=== PATIENT | female | born 1950 | race Caucasian/White ===

== ENCOUNTER 2019-08-31 17:56 | Emergency (ER) | payer BC, OTHER ==
--- NOTE | 2019-08-31 18:20 | PDOC ---
Rapid Medical Evaluation Time Seen by Provider: 08/31/19 18:14 Medical Evaluation: Allergies Allergy/AdvReac Type Severity Reaction Status Date / Time minerals [From Enviro Stress] Allergy Intermediate Hives Verified 08/17/16 09:27 vitamin B complex and C Allergy Intermediate Hives Verified 08/17/16 09:27 [From Enviro Stress] vitamin E (d-alpha Allergy Intermediate Hives Verified 08/17/16 09:27 tocopherol) [From Enviro Stress] ciprofloxacin [From Cipro] Allergy Mild Rash Verified 08/14/16 13:37 Penicillins Allergy Mild Rash Verified 08/14/16 13:37 artificial sweeteners Allergy Intermediate Hives Uncoded 08/17/16 09:27 08/31/19 18:14 I have performed a brief in-person evaluation of this patient. The patient presents with a chief complaint of: 3 days of lightheadedness and headaches. H/O HTN, thyroid disease. I have ordered the following: CBC, CMP, cardiac enzymes, ekg. The patient will proceed to the ED for further evaluation. Discharge Disposition - Diagnosis Lightheadedness - Referrals - Patient Instructions - Post Discharge Activity
[2019-08-31 18:22] VITALS: BMI 27.2
[2019-08-31] MEDS ORDERED: ACETAMINOPHEN 500 MG TABLET (FP) PO ONE (19:17)
[2019-08-31] MEDS ORDERED: SODIUM CHLORIDE 1,000 ML IV STA (19:31)
--- NOTE | 2019-08-31 19:31 | PDOC ---
History of Present Illness - General Chief Complaint: Lightheaded Stated Complaint: DIZZINESS Time Seen by Provider: 08/31/19 18:14 History Source: Patient Exam Limitations: No Limitations - History of Present Illness Initial Comments: 08/31/19 19:27 68yo F with PMH of HTN, Hypothyroidism, Depression, Vertigo, Neuropathy presenting to ED with complaints of lightheadedness and headache x3d. Patient states that for the past few days she has had a tension like headache which has been intermittent. She states she usually gets headaches but this one has been lasting longer. Headache non radiating and relieved by taking ASA and by sleeping. She also endorses lightheadedness which has been constant since Tuesday. She denies weakness, numbness/tingling, changes in vision, n/v/d, chest pain, sob, back pain, neck pain, incontinence. She states that she has been having problems with her landlord which has been going on for 1y and feels like she is going to be kicked out of her household. PMD: Karyna PMH: see hpi PSH: cholecystectomy, ovarian cystectomy, R rotator cuff repair, bilateral meniscus repairs Meds: see med rec Allergies: see list Social: drinks 4-6 cans of beer occasionally Past History - Past Medical History Allergies/Adverse Reactions: Allergies Allergy/AdvReac Type Severity Reaction Status Date / Time minerals [From Enviro Stress] Allergy Intermediate Hives Verified 08/31/19 18:14 vitamin B complex and C Allergy Intermediate Hives Verified 08/31/19 18:14 [From Enviro Stress] vitamin E (d-alpha Allergy Intermediate Hives Verified 08/31/19 18:14 tocopherol) [From Enviro Stress] ciprofloxacin [From Cipro] Allergy Mild Rash Verified 08/31/19 18:14 Penicillins Allergy Mild Rash Verified 08/31/19 18:14 artificial sweeteners Allergy Intermediate Hives Uncoded 08/31/19 18:14 Home Medications: Ambulatory Orders Amlodipine Bes/Olmesartan Med [Babita 10-40 mg Tablet] 1 each PO DAILY 08/14/16 Duloxetine HCl [Cymbalta] 60 mg PO DAILY 08/14/16 Meclizine HCl [Antivert -] 25 mg PO DAILY #7 tablet 08/31/19 Thyroid,Pork [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 No: Chills, Fever, Weakness HEENTM: No: Symptoms Reported Respiratory: No: Symptoms reported Cardiac (ROS): Yes: Lightheadedness ABD/GI: No: Symptoms Reported : No: Symptoms Reported Musculoskeletal: No: Symptoms Reported Integumentary: No: Symptoms Reported Neurological: Yes: Headache, Dizziness *Physical Exam - Vital Signs Last Vital Signs Temp Pulse Resp BP Pulse Ox 98.3 F 116 H 20 145/95 97 08/31/19 18:19 08/31/19 18:19 08/31/19 18:19 08/31/19 18:19 08/31/19 18:19 - Physical Exam General Appearance: Yes: Nourished, Appropriately Dressed. No: Apparent Distress HEENT: positive: EOMI, ANNALISE, Normal ENT Inspection, Other (no nystagmus) Neck: positive: Trachea midline, Supple. negative: Carotid bruit Respiratory/Chest: positive: Lungs Clear, Normal Breath Sounds. negative: Rales , Rhonchi, Stridor, Wheezing Cardiovascular: positive: Regular Rhythm, Regular Rate, S1, S2. negative: Edema , JVD, Murmur Vascular Pulses: Dorsalis-Pedis (R): 2+, Doralis-Pedis (L): 2+ Gastrointestinal/Abdominal: positive: Normal Bowel Sounds, Soft. negative: Tender Musculoskeletal: negative: CVA Tenderness Extremity: positive: Normal Capillary Refill. negative: Swelling, Calf Tenderness Integumentary: positive: Normal Color, Dry, Warm Neurologic: positive: sponge buffer II-XII NML intact, Fully Oriented, Alert, Normal Mood/ Affect, Normal Response, Finger to Nose, Other (normal HINTS exam). negative: Motor Strength 5/5 (R hand weakness 2/2 radial nn palsy. ), Sensory Deficit, Confused, Disoriented ED Treatment Course - LABORATORY CBC & Chemistry Diagram: 08/31/19 19:30 08/31/19 19:30 - RADIOLOGY Radiology Studies Ordered: Category Date Time Status HEAD CT WITHOUT CONTRAST [CT] Stat CT Scan 08/31/19 19:17 Ordered Medical Decision Making - Medical Decision Making 08/31/19 21:01 68yo F presenting with lightheadedness/dizziness and PLAZA which last longer than usual headaches/vertigo. vitals: tachycardia. normal neurological and physical exam. ddx includes but not limited to cva/tia, vertigo, tension plaza, mass/malignancy. low suspicion for infectious process such as meningitis/encephalitis. likely stress related. labs and ekg ordered by rme. added ct, iv fluids, tylenol. labs wnl. ekg: sinus tachycardia at 102 bpm, no radha or depressions, normal intervals. pt states she still feels lightheaded and "off". when asked to describe "off" pt states that this feels like her vertigo when she changes position of her head , she feels slight dizziness, but she has never had symptoms lasting this long before. She is currently not on medications for vertigo. will give meclizine. pt declining anxiolytic. ct head: no acute pathology/masses or changes since prior. low suspicion for cva/tia given chronicity and dizziness triggered by movements of head. 08/31/19 21:42 pt feeling better, vitals improved. safe for dc home. requesting rx for meclizine. will advise to f/u with pmd. given return precautions. Discharge - Discharge Information Problems reviewed: Yes Clinical Impression/Diagnosis: Lightheadedness Headache Qualifiers: Headache type: tension-type Headache chronicity pattern: acute headache Intractability: not intractable Qualified Code(s): G44.209 - Tension-type headache, unspecified, not intractable Condition: Good Disposition: HOME - Admission No - Additional Discharge Information Prescriptions: Meclizine HCl [Antivert -] 25 mg PO DAILY #7 tablet - Follow up/Referral Referrals: Mathieu Troncoso MD [Primary Care Provider] - - Patient Discharge Instructions Patient Printed Discharge Instructions: DI for Headache Additional Instructions: You were seen in the emergency room today for a headache and lightheadedness. Your blood work and CT scan are normal. I recommend making an appointment with your doctor early next week regarding this ED visit. Continue to take your medications as directed. Please come back to the emergency room if headache gets worse, dizziness gets worse, you pass out, you have new numbness/tingling or weakness or if any new concerning symptom develops. Thank you - Post Discharge Activity
[2019-08-31 19:47] LABS: BASO % 1.3 % (0-2.0); EOS % 0.5 % (0-4.5); HEMATOCRIT 44.7 % (32.4-45.2); LYMPH % 26.5 % (8-40); MCH 31.1 pg (25.7-33.7); MCHC 33.6 g/dl (32.0-36.0); MEAN CELL VOLUME 92.5 fl (80-96); MEAN PLT VOLUME 7.3 fl (7.5-11.1); MONO % 6.4 % (3.8-10.2); NEUT % 65.3 % (42.8-82.8); PLATELET COUNT 408 K/MM3 (134-434); RBC 4.83 M/mm3 (3.60-5.2); RDW 15.5 % (11.6-15.6); WHITE BLOOD COUNT 8.5 K/mm3 (4.0-10.0)
--- NOTE | 2019-08-31 19:54 | PDOC ---
Attending Attestation - Resident Resident Name: Madison Mclean - ED Attending Attestation I have performed the following: I have examined & evaluated the patient, The case was reviewed & discussed with the resident, I agree w/resident's findings & plan - HPI HPI: 08/31/19 19:51 68yo F with PMH of HTN, Hypothyroidism, Depression, Vertigo, Neuropathy presenting to ED with complaints of lightheadedness and headache x3d. + intermittent tension headache, generalized pattern. Headache non radiating and relieved by taking ASA and by sleeping. She states that she has been having problems with her landlord which has been going on for 1 year as well as finances. + lightheadedness intermittently x 2-3 days. denies focal vertigo, weakness, numbness/tingling, changes in vision, n/v/d, chest pain, sob, back pain, neck pain, incontinence. no falls or trauma. no recent illness/sicknesses 08/31/19 22:13 08/31/19 22:14 - Physicial Exam PE: 08/31/19 19:53 Agree with the resident's HPI and PE as documented in the electronic medical record. NAD, well appearing, EOMI, PERRL, MMM, nl conjunctiva, anicteric, no dentition; neck supple. lungs clear, RRR, abdomen soft nontender. Back nontender. VICK x4, no focal neuro deficits. No peripheral edema. normal color for ethnicity, WW. 08/31/19 22:13 - Medical Decision Making 08/31/19 19:53 See HPI for details. Prior notes reviewed, including admissions, discharges and consultations. Vital signs reviewed, +tachy, but anxious and easily stressed Vital Signs Temp Pulse Resp BP Pulse Ox 98.3 F 116 H 20 145/95 97 08/31/19 18:19 08/31/19 18:19 08/31/19 18:19 08/31/19 18:19 08/31/19 18:19 laboratory results and imaging reviewed, basic labs and lytes wnl, head CT with atrophy, but no acute PASSENGER ATTENDANT pathology Cardiac panel_neg trop, reassuring EKG sinus tachycardia at 102 bpm, no interval abnormalities, narrow QRS, ST and T wave segments and morphology normal. ED course -interventions: analgesia, meclizine. no cp or sob. neuro intact repeat VS improved. no longer tachy feels better with meds, c/w supportive care and avoid triggers, hydration pt to be discharged in stable condition. Patient made aware of clinical impression, treatment recommendations and disposition plan, return precautions discussed (including but not limited to new or persistent/worsening symptoms, pain, fevers, or signs of infection, chest pain, respiratory distress, inability to tolerate oral intake, dehydration, syncope, or neurologic changes) . Follow up with PMD and/or specialist as recommended, follow up information provided, take medications as instructed for duration of time. continue with supportive care, avoid triggers and precipitants. All questions answered to patient's satisfaction and expressed understanding and comfort with this. At the time of discharge, the patient is alert, clinically improved, tolerating po and verbalizes understanding of instructions, satisfied with the care received and felt comfortable with the plan. Patient does not suffer from an acute life- threatening medical condition at this time and is safe for outpatient follow- up. 08/31/19 19:54 08/31/19 20:57 08/31/19 22:13 Heart Score/ECG Review #1 ECG reviewed & interpreted by me at: 19:00 General ECG Interpretation: Sinus Rhythm, Normal Intervals, No acute ischemic changes 08/31/19 19:54 EKG sinus tachycardia at 102 bpm, no interval abnormalities, narrow QRS, ST and T wave segments and morphology normal.
[2019-08-31 20:02] LABS: INR 1.03 (0.83-1.09); PROTHROMBIN TIME (PATIENT) 12.2 SEC (9.7-13.0)
[2019-08-31 20:16] LABS: ALBUMIN 4.2 g/dl (3.4-5.0); BILIRUBIN,TOTAL 0.4 mg/dL (0.2-1); BLOOD UREA NITROGEN 12.5 mg/dL (7-18); CALCIUM 9.3 mg/dL (8.5-10.1); CREATININE 1.1 mg/dL (0.55-1.3); POTASSIUM 3.8 mmol/L (3.5-5.1); TOT PROT 7.4 g/dl (6.4-8.2)
[2019-08-31 20:19] LABS: MAGNESIUM 1.9 mg/dL (1.8-2.4); PHOSPHOROUS 4.2 mg/dL (2.5-4.9)
[2019-08-31] MEDS ORDERED: MECLIZINE HCL 25 MG TABLET (FP) PO ONE (20:49)
[2019-08-31] MEDS ORDERED: ACETAMINOPHEN 325 MG TABLET (FP) ONE (20:57)
[2019-08-31] MEDS ORDERED: MECLIZINE HCL 25 MG TABLET (FP) ONE (20:57)
[2019-08-31 21:57] VITALS: BP 126/87; PULSE 74; TEMP 98.5
--- NOTE | 2019-09-01 09:53 | EKG ---
Test Reason : Blood Pressure : / mmHG Vent. Rate : 102 BPM Atrial Rate : 102 BPM P-R Int : 180 ms QRS Dur : 076 ms QT Int : 336 ms P-R-T Axes : 075 073 055 degrees QTc Int : 437 ms SINUS TACHYCARDIA BIATRIAL ENLARGEMENT ABNORMAL ECG WHEN COMPARED WITH ECG OF 16-DEC-2013 14:38, QT HAS SHORTENED Confirmed by MARK GOLDEN MD ([id number]) on 09/01/2019 9:53:29 AM Referred By: Confirmed By:MARK GOLDEN MD
== END 2019-08-31 22:23 | disposition home or self-care (01) ==
LOC: SUPCPDRO 17:56 → JER 17:56
PROC: 3E0337Z Introduction of Electrolytic and Water Balance Substance into Peripheral Vein, Percutaneous Approach (ICD-10-PCS; principal; 2019-08-31)
DX: R42 Dizziness and giddiness (principal); G44.209 Tension-type headache, unspecified, not intractable; I10 Essential (primary) hypertension; E03.9 Hypothyroidism, unspecified; F32.9 Major depressive disorder, single episode, unspecified; Z88.0 Allergy status to penicillin; Z88.1 Allergy status to other antibiotic agents; Z88.8 Allergy status to other drugs, medicaments and biological substances
CPT/HCPCS: 36415; 70450-TC; 80053; 82550; 83735; 84100; 84484; 85025; 85610; 93005; 93010; 96360; 99283-25; J7030

== ENCOUNTER 2019-12-10 22:10 | Inpatient (IN) | payer OTHER ==
[2019-12-10] MEDS ORDERED: ONDANSETRON *ODT* 4 MG TABLET SL ONE (22:25)
[2019-12-10] MEDS ORDERED: ONDANSETRON *ODT* 4 MG TABLET ONE (22:27)
[2019-12-10] MEDS ORDERED: DIPHTH,PERTUSS(ACELL),TET 0.5 ML DISP.SYRIN IM ONE ×2 (23:05→23:23)
[2019-12-10] MEDS ORDERED: SODIUM CHLORIDE 0.9% 500 ML INFUS.BAG IV ONE (23:05)
--- NOTE | 2019-12-10 23:05 | PDOC ---
History of Present Illness - General Chief Complaint: Injury Stated Complaint: FALL Time Seen by Provider: 12/10/19 23:05 Past History - Past Medical History Allergies/Adverse Reactions: Allergies Allergy/AdvReac Type Severity Reaction Status Date / Time minerals [From Enviro Stress] Allergy Intermediate Hives Verified 08/31/19 18:14 vitamin B complex and C Allergy Intermediate Hives Verified 08/31/19 18:14 [From Enviro Stress] vitamin E (d-alpha Allergy Intermediate Hives Verified 08/31/19 18:14 tocopherol) [From Enviro Stress] ciprofloxacin [From Cipro] Allergy Mild Rash Verified 08/31/19 18:14 Penicillins Allergy Mild Rash Verified 08/31/19 18:14 artificial sweeteners Allergy Intermediate Hives Uncoded 08/31/19 18:14 Home Medications: Ambulatory Orders Amlodipine Bes/Olmesartan Med [Babita 10-40 mg Tablet] 1 each PO DAILY 08/14/16 Duloxetine HCl [Cymbalta] 60 mg PO DAILY 08/14/16 Meclizine HCl [Antivert -] 25 mg PO DAILY #7 tablet 08/31/19 Acetaminophen [Tylenol .Regular Strength -] 650 mg PO Q6H PRN tablet 12/14/19 Folic Acid - 1 mg PO DAILY #30 tablet 12/14/19 Levothyroxine [Synthroid -] 75 mcg PO DAILY #30 tablet 12/14/19 Thiamine HCl [Vitamin B1 -] 100 mg PO DAILY #30 tablet 12/14/19 COPD: No HTN: Yes Psychiatric Problems: Yes (depression) Thyroid Disease: Yes (hypo) - Surgical History Cholecystectomy: Yes Orthopedic Surgery: Yes (right shoulder sx with screws) - Psycho Social/Smoking Cessation Hx Smoking History: Unknown if ever smoked Have you smoked in the past 12 months: No Number of Cigarettes Smoked Daily: 2 Hx Alcohol Use: No Drug/Substance Use Hx: No Substance Use Type: None Hx Substance Use Treatment: No ED Treatment Course - LABORATORY CBC & Chemistry Diagram: 12/14/19 06:27 12/14/19 06:27 - RADIOLOGY Radiology Studies Ordered: Category Date Time Status CERVICAL SPINE CT W/O CONTR [CT] Stat CT Scan 12/10/19 22:[address] W/O CONTRAST [CT] Stat CT Scan 12/10/19 22:[address] (STROKE) [CT] Stat CT Scan 12/10/19 22:20 Ordered - Medications Given in the ED: ED Medications Discontinued Medications Generic Name Dose Route Start Last Admin Trade Name Cheryl PRN Reason Stop Dose Admin Ondansetron HCl 4 mg 12/10/19 22:25 12/10/19 22:29 Zofran Odt - SL 12/10/19 22:26 4 mg ONCE ONE Administration Medical Decision Making - Medical Decision Making 12/10/19 23:19 HPI: 69yo F hx HTN, Hypothyroidism, Depression, Vertigo, Neuropathy, and alcohol abuse (4 12oz coors lights daily for "pain", no hx w/d seizures) presents from home with nose lac, deformity, and pain s/p ?syncope this PM with head injury s/ p drinking 4 12oz coors lights. Endorses nausea and vomiting, uncertain if began before or after syncope/fall. Endorses LOC. Cannot remember why fell. States was walking to bathroom and just blacked out, waking up on floor. Endorses extreme fatigue and wants to sleep. Pt was in [place] prior to drinking this PM, went to doctor for knees and shoulders/arms and X-rays showed arthritis , did errands, went home and started drinking at approx 9pm. Denies blood thinner use, other injuries or pain, prodromal CP or palpitations or lightheadedness/dizziness, seizure like activity, incontinence, tongue-biting, headache, fever, chills, dizziness, vertigo, SOB, back pain, neck pain, hip pain , abdominal pain, diarrhea, constipation, blood in stool, numbness/tingling, weakness, vision changes, dysuria, hematuria, confusion, leg swelling, hx DVT/PE , recent travel, sick contacts. ROS: Constitutional: Negative for chills, fever, fatigue, diaphoresis. HENT: Positive for nose pain. Negative for sore throat, rhinorrhea, congestion. Eyes: Negative for visual disturbance. Respiratory: Negative for shortness of breath, cough, and wheezing. Cardiovascular: Negative for chest pain, palpitations, and leg swelling. Gastrointestinal: Negative for abdominal pain, blood in stool, constipation, diarrhea, nausea, and vomiting. Genitourinary: Negative for dysuria, flank pain, and hematuria. Musculoskeletal: Negative for myalgias, back pain, and neck pain. Skin: Negative for rash. Neurological: Positive for syncope. Negative for light-headedness, dizziness, vertigo, weakness, numbness and headaches. Psychiatric/Behavioral: Positive for alcohol abuse and intoxication. Negative for behavioral problems and confusion. PE: Gen: Alert, NAD, comfortable-appearing, actively vomiting and bleeding slowly from nasal lac HEENT: PERRL, EOMI, dry MM, NC. No conjunctival pallor. Sclera are non-icteric. +superficial 2cm vertical linear lac to anterior nose with slow bleeding stopped with pressure, no foreign bodies. Deformed and ecchymotic nose with dried blood in both nares. CV: Regular rate and rhythm. No murmurs, rubs, or gallops. PULM: No resp distress. CTAB, no wheezes, rales, or rhonchi. ABD: soft, NT/ND, no rebound tenderness or guarding, no CVA tenderness. BACK: No TTP of c/t/l-spine. No step-offs or deformities. MSK: No bony deformities. 2+ pulses in all extremities. Pelvic stable, intact, no TTP hips. NEURO: AAOx3. PERRL. CN 2-12 intact. 5/5 strength in all extremities. Sensation to light touch intact in all extremities. No pronator drift. No dysmetria. No dysdiadochokinesia. No abnormal nystagmus. EXTREMITIES: No cyanosis. No clubbing. No edema. No calf tenderness. PSYCH: Normal mood and thought pattern. SKIN: Warm and dry. Normal capillary refill. No rashes. No jaundice. MDM: 69yo F hx HTN, Hypothyroidism, Depression, Vertigo, Neuropathy, and alcohol abuse (4 12oz coors lights daily for "pain", no hx w/d seizures) presents from home with nose lac/deformity/pain, fatigue, and N/V, s/p ?syncope this PM with head injury s/p drinking 4 12oz coors lights. Hemodynamically stable, afebrile, neurologically intact, no s/s of trauma other than nose. Syncope vs withdrawal seizure vs fall. Syncope ddx includes: ACS/OR (low concern for cardiac etiology due to lack of CP, palpitations, FHx), arrhythmias (WPW, LGL, Brugada, long/short QT interval, HOCM), orthostatic, infectious etiologies (UTI, PNA, no headache/fever/photophobia/neck pain or stiffness concerning for meningitis), anemia, metabolic derangements, SAH/ICH, stroke, intox -CTH/c-spine/facial bones -CXR -EKG -CBC,CMP,Mg,Phos,Cardiac profile,UA/UC -Tdap -IVF -Zofran -1g Ancef for nasal fx and lac -Clean lac and repair with steristrip: irrigated with 500cc NS, 3 steristrips placed -Dispo: likely admit tele/obs syncope 12/10/19 23:38 EKG reviewed: NSR, 63bpm, normal intervals, QTc 433ms, normal axis, no TWIs, no ST elevations or depressions CTH reviewed: Compared to prior CT scan of the head dated 08/31/2019 Moderate cortical atrophy involving the anterior superior aspect of the frontal lobes with prominent extra -axial space are again seen without interval change. There is mild ventricular dilatation. No mass lesion, gross acute infarct or intracranial hemorrhage are identified. There is no shift of the midline structures. The craniocervical junction appears unremarkable. Paranasal sinuses are well aerated. Calcification of the cavernous carotid arteries are present. The mastoid air cells are well aerated and the calvarium is intact Impression: See discussion above. No CT evidence of acute intracranial pathology is identified. Correlate clinically to determine further evaluation and follow-up. 12/11/19 00:[address] Pt signed out to Dr Bender. Pending CT reads, labs, and CXR, admit for syncope eval Discharge - Discharge Information Problems reviewed: Yes Clinical Impression/Diagnosis: Alcohol abuse, Unwitnessed fall Hypothyroid Qualifiers: Hypothyroidism type: unspecified Qualified Code(s): E03.9 - Hypothyroidism, unspecified Condition: Improved Disposition: VNS/HOME HEALTH CARE - Follow up/Referral - Patient Discharge Instructions - Post Discharge Activity
--- NOTE | 2019-12-10 23:11 | PDOC ---
Attending Attestation - Resident Resident Name: KunsissyEmiliaMartina - ED Attending Attestation I have performed the following: I have examined & evaluated the patient, The case was reviewed & discussed with the resident, I agree w/resident's findings & plan - HPI HPI: 12/11/19 00:56 see resident hpi - Physicial Exam PE: 12/11/19 00:56 agree with resident exam - Medical Decision Making 12/11/19 00:57 69-year-old female status post fall with admitted EtOH use There is believed to be loss of consciousness, syncope versus concussion versus alcohol withdrawal seizure We will admit to medical service for further evaluation CT scans of the head cervical spine and facial bones were obtained There is a right maxillary fracture noted Patient received 1 g of Ancef as well due to punctate laceration over the nasal bridge with underlying fracture She will be admitted to medical service for further evaluation She is currently awake alert and nonfocal neurologically with no signs of acute alcohol withdrawal at this time
[2019-12-10] MEDS ORDERED: FOLIC ACID INJECTION - 1 MG, THIAMINE HCL 100 MG, MULTIVIT INJECTION ADULT 10 ML in SOD... IVPB ONE (23:26)
[2019-12-10] MEDS ORDERED: CEFAZOLIN 1 GM/D5W 1 GM/50 ML BAG IVPB ONE (23:31)
[2019-12-11] LABS: BASO % 0.6 % (0-2.0); EOS % 1.3 % (0-4.5); HEMATOCRIT 35.8 % (32.4-45.2); HEMOGLOBIN 11.9 GM/dL (10.7-15.3); LYMPH % 29.2 % (8-40); MCH 30.2 pg (25.7-33.7); MCHC 33.3 g/dl (32.0-36.0); MEAN CELL VOLUME 90.5 fl (80-96); MEAN PLT VOLUME 6.5 fl (7.5-11.1); MONO % 5.6 % (3.8-10.2); NEUT % 63.3 % (42.8-82.8); PLATELET COUNT 445 K/MM3 (134-434); RBC 3.96 M/mm3 (3.60-5.2); WHITE BLOOD COUNT 10.7 K/mm3 (4.0-10.0)
[2019-12-11] MEDS ORDERED: CEFAZOLIN 1 GM/D5W 1 GM/50 ML BAG ONE (00:20)
[2019-12-11 00:26] LABS: INR 0.95 (0.83-1.09); PROTHROMBIN TIME (PATIENT) 11.2 SEC (9.7-13.0)
[2019-12-11 00:29] LABS: ACTIVATED PTT 30.3 SECONDS (25.2-36.5)
[2019-12-11 01:06] LABS: ALBUMIN 3.5 g/dl (3.4-5.0); BILIRUBIN,TOTAL 0.2 mg/dL (0.2-1); BLOOD UREA NITROGEN 14.2 mg/dL (7-18); CALCIUM 8.3 mg/dL (8.5-10.1); CREATININE 0.9 mg/dL (0.55-1.3); MAGNESIUM 1.8 mg/dL (1.8-2.4); POTASSIUM 4.1 mmol/L (3.5-5.1); TOT PROT 6.8 g/dl (6.4-8.2)
--- NOTE | 2019-12-11 01:20 | PDOC ---
*Physical Exam - Vital Signs Last Vital Signs Temp Pulse Resp BP Pulse Ox 98.6 F 70 17 101/71 99 12/11/19 00:59 12/11/19 00:59 12/11/19 00:59 12/11/19 00:59 12/11/19 00:59 ED Treatment Course - LABORATORY CBC & Chemistry Diagram: 12/10/19 23:30 12/10/19 23:30 - ADDITIONAL ORDERS Additional order review: Laboratory Results 12/10/19 12/10/19 12/10/19 23:30 23:30 23:30 PT with INR 11.20 INR 0.95 PTT (Actin FS) 30.3 Sodium 132 L Potassium 4.1 Chloride 99 Carbon Dioxide 24 Anion Gap 9 BUN 14.2 Creatinine 0.9 Est GFR (CKD-EPI)AfAm 76.68 Est GFR (CKD-EPI)NonAf 66.16 Random Glucose 101 Calcium 8.3 L Phosphorus 4.0 Magnesium 1.8 Total Bilirubin 0.2 AST 22 ALT 24 Alkaline Phosphatase 95 Creatine Kinase 134 Troponin I < 0.02 Total Protein 6.8 Albumin 3.5 Lipase 142 TSH 235.00 H 12/10/19 23:30 RBC 3.96 MCV 90.5 MCHC 33.3 RDW 15.0 MPV 6.5 L D Neutrophils % 63.3 Lymphocytes % 29.2 Monocytes % 5.6 Eosinophils % 1.3 D Basophils % 0.6 - Medications Given in the ED: ED Medications Discontinued Medications Generic Name Dose Route Start Last Admin Trade Name Freq PRN Reason Stop Dose Admin Diphtheria/Tetanus/Acell Pertussis 0.5 ml 12/10/19 23:05 12/10/19 23:43 Boostrix - IM 12/10/19 23:06 0.5 ml .ONCE ONE Administration Cefazolin Sodium 1 gm in 50 mls @ 100 mls/hr 12/10/19 23:31 12/11/19 00:32 Ancef 1 Gm Premixed Ivpb - IVPB 12/11/19 00:00 100 mls/hr ONCE ONE Administration Ondansetron HCl 4 mg 12/10/19 22:25 12/10/19 22:29 Zofran Odt - SL 12/10/19 22:26 4 mg ONCE ONE Administration Sodium Chloride 1,000 ml 12/10/19 23:05 12/10/19 23:55 Normal Saline - IV 12/10/19 23:06 1,000 ml ONCE ONE Administration Medical Decision Making - Medical Decision Making 12/11/19 01:09 Sign out received from Dr Ward. Angela Rodriguez is a 69yo woman with a PMH HTN, hypothyroidism, depression, alcohol abuse who presented to the ED after a fall, possible syncope v seizure. - ED workup so far included syncope labs, CT head/c-spine, CT face ordered - Laceration over nose repaired by Dr Ward - Ancef for likely nasal fracture Labs, CT's completed. - CT face w/ fracture of the anterior wall of the right maxillary sinus and nasal bridge - Labs notable for TSH of 235. Called lab to request that they recheck TSH - Plan to admit for syncope - Microblog sent by Dr Colin for admission 12/11/19 01:52 - Sign out given to KIANA Haynes. Will admit to telemetry on Dr Pineda' service for additional evaluation Discussed wtih Dr Ernie Bender PGY2 Discharge - Discharge Information Problems reviewed: Yes Clinical Impression/Diagnosis: Alcohol abuse, Unwitnessed fall Hypothyroid Qualifiers: Hypothyroidism type: unspecified Qualified Code(s): E03.9 - Hypothyroidism, unspecified Condition: Stable - Admission Yes - Follow up/Referral Referrals: Mathieu Troncoso MD [Primary Care Provider] - - Patient Discharge Instructions - Post Discharge Activity
--- NOTE | 2019-12-11 03:00 | HP ---
Admitting History and Physical - Primary Care Physician PCP: Dr. Pineda - Admission Chief Complaint: Injury/fall History of Present Illness: 69 year old female with PMHX of HTN, Hypothyroidism, Depression, Vertigo, Neuropathy, and alcohol abuse (4 12oz coors lights daily for "pain", no hx w/d seizures) presents from home with nose lac, deformity, and pain s/p ?syncope this PM with head injury s/p drinking 4 12oz coors lights. Patient complain of nausea and vomiting, uncertain if began before or after syncope/fall. Endorses LOC. Patient states was walking to bathroom and just blacked out, waking up on floor. Patient denies blood thinner use, lightheadedness/dizziness, seizure like activity, incontinence, headache, fever , chills, dizziness,SOB, back pain, neck pain, hip pain, abdominal pain, diarrhea, constipation. 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 Cardiovascular: Yes: HTN Hepatobiliary: Yes: Other (alcohol abuse) Psych: Yes: Depression Musculoskeletal: Yes: Chronic low back pain Endocrine: Yes: Hypothyroidism - Past Surgical History Past Surgical History: Yes: Cholecystectomy, Joint Replacement (right shoulder sx with screws) - Smoking History Smoking history: Current some day smoker Have you smoked in the past 12 months: No Aproximately how many cigarettes per day: 2 - Alcohol/Substance Use Hx Alcohol Use: Yes (4 BEERS/DAY) History of Substance Use: reports: None - Social History ADL: Independent History of Recent Travel: No Home Medications - Allergies Allergies/Adverse Reactions: Allergies Allergy/AdvReac Type Severity Reaction Status Date / Time minerals [From Enviro Stress] Allergy Intermediate Hives Verified 08/31/19 18:14 vitamin B complex and C Allergy Intermediate Hives Verified 08/31/19 18:14 [From Enviro Stress] vitamin E (d-alpha Allergy Intermediate Hives Verified 08/31/19 18:14 tocopherol) [From Enviro Stress] ciprofloxacin [From Cipro] Allergy Mild Rash Verified 08/31/19 18:14 Penicillins Allergy Mild Rash Verified 08/31/19 18:14 artificial sweeteners Allergy Intermediate Hives Uncoded 08/31/19 18:14 - Home Medications Home Medications: Ambulatory Orders Amlodipine Bes/Olmesartan Med [Babita 10-40 mg Tablet] 1 each PO DAILY 08/14/16 Duloxetine HCl [Cymbalta] 60 mg PO DAILY 08/14/16 Meclizine HCl [Antivert -] 25 mg PO DAILY #7 tablet 08/31/19 Thyroid,Pork [[employer] Thyroid] 15 mg PO ASDIR 08/31/19 Family Medical History Family History: Denies Review of Systems - Review of Systems Constitutional: reports: No Symptoms Eyes: reports: No Symptoms HENT: reports: Other (Positive for nose pain) Neck: reports: No Symptoms Cardiovascular: reports: No Symptoms Respiratory: reports: No Symptoms Gastrointestinal: reports: No Symptoms Genitourinary: reports: No Symptoms Musculoskeletal: reports: No Symptoms Integumentary: reports: No Symptoms Neurological: reports: Syncope, Other (Positive for alcohol abuse and intoxication) Endocrine: reports: No Symptoms Hematology/Lymphatic: reports: No Symptoms Psychiatric: reports: No Symptoms Physical Examination Vital Signs: Vital Signs Temperature 98.6 F 12/11/19 00:59 Pulse Rate 70 12/11/19 00:59 Respiratory Rate 17 12/11/19 00:59 Blood Pressure 101/71 12/11/19 00:59 O2 Sat by Pulse Oximetry (%) 99 12/11/19 00:59 Constitutional: Yes: Mild Distress, Other (vomiting and bleeding slowly from nasal lac) Eyes: Yes: Conjunctiva Clear, EOM Intact HENT: Yes: Normocephalic, Other (+superficial 2cm vertical linear laceration to anterior nose with slow bleeding, no foreign bodies. Deformed and ecchymotic nose with dried blood in both nares.) Cardiovascular: Yes: S1, S2 Respiratory: Yes: Regular, CTA Bilaterally Gastrointestinal: Yes: Normal Bowel Sounds, Soft Musculoskeletal: Yes: WNL Edema: No Peripheral Pulses WNL: Yes Neurological: Yes: Alert, Oriented Labs: CBC, BMP 12/10/19 23:30 12/10/19 23:30 Imaging - Results Chest X-ray: Report Reviewed (no acute infiltrate) X-ray: Report Reviewed Cat Scan: Report Reviewed (CTH reviewed: Compared to prior CT scan of the head dated 08/31/2019 Moderate cortical atrophy involving the anterior superior aspect of the frontal lobes with prominent extra-axial space are again seen without interval change. There is mild ventricular dilatation. No mass lesion, gross acute infarct or intracranial hemorrhage are identified. There is no shift of the midline structures. The craniocervical junction appears unremarkable. Paranasal sinuses are well aerated. Calcification of the cavernous carotid arteries are present. The mastoid air cells are well aerated and the calvarium is intact Impression: See discussion above. No CT evidence of acute intracranial pathology is identified. Correlate clinically to determine further evaluation and follow-up. - CT face w/ fracture of the anterior wall of the right maxillary sinus and nasal bridge) EKG: Report Reviewed (EKG reviewed: NSR, 63bpm, normal intervals, QTc 433ms, normal axis, no TWIs, no ST elevations or depressions) Problem List - Problems (1) Right maxillary fracture Code(s): S02.40CA - MAXILLARY FRACTURE, RIGHT SIDE, INIT (2) Nasal fracture Code(s): S02.2XXA - FRACTURE OF NASAL BONES, INIT ENCNTR FOR CLOSED FRACTURE (3) Alcohol abuse Code(s): F10.10 - ALCOHOL ABUSE, UNCOMPLICATED (4) Unwitnessed fall Code(s): R29.6 - REPEATED FALLS Assessment/Plan Angela Rodriguez is a 69yo woman with a PMH HTN, hypothyroidism, depression, alcohol abuse who presented to the ED after a fall. # post fall # Syncope # Right maxillary sinus/ nasal bridge fx tele, cardiac monitoring EKG reviewed: NSR, 63bpm, normal intervals, QTc 433ms, normal axis, no TWIs, no ST elevations or depressions CT Head: moderate cortical atrophy involving the anterior superior aspect of the front lobes, mild ventricular dilation, no acute infarct/hemorrhage noted C-spine/facial bones:fracture of the anterior wall of the right maxillary sinus and nasal bridge CXR; no acute infiltrate -CBC/CMP: wbc: 10.7 unremarkable -Cardiac profile: trop negative In ED Laceration over nose repaired -Tdap, IVF 1lNS, Zofran and 1g Ancef for nasal fx and lac - continue with Ancef daily - continue with IVF - pain management - local wound care - repeat cbc, bmp - follow up ucx - safety/fall precaution - follow up ENT - follow up ID - follow up cardiology - if needed consider plastic sx follow up # Alcohol abuse -given banana bag in ED -no acute DTs noted -Mg+/phos; wnl -member does not meet criteria for Ativan/Librium protocol - will place Ativan 0.5 mg BID PRN - continue with IVF - continue with thiamine and folic acid po - zofran PRN - safety/fall precaution # HTN - Amlodipine Bes/Olmesartan Med 1 each PO DAILY # Hypothyroidism Lab TSH of 235, ED Called lab recheck TSH - adjust med based on TSH level # Depression -Duloxetine HCl 60 mg PO DAILY # vertigo - continue with Antivert 25 mg daily VTE: heparin SQ FEN: fluids, monitor lytes, cardiac diet Dispo: tele Visit type - Emergency Visit Emergency Visit: Yes ED Registration Date: 12/11/19 Care time: The patient presented to the Emergency Department on the above date and was hospitalized for further evaluation of their emergent condition. - New Patient This patient is new to me today: Yes Date on this admission: 12/11/19 - Critical Care Critical Care patient: No
[2019-12-11] MEDS ORDERED: ACETAMINOPHEN 325 MG TABLET (FP) PO PRN (04:49)
[2019-12-11] MEDS ORDERED: ONDANSETRON 4 MG/2 ML VIAL IVPUSH PRN (04:49)
[2019-12-11] MEDS ORDERED: LORazepam 2 MG TABLET PO PRN (04:54)
[2019-12-11] MEDS: SODIUM CHLORIDE 1,000 ML IV SCH (06:26)
[2019-12-11 07:48] LABS: BASO % 0.4 % (0-2.0); EOS % 0.4 % (0-4.5); HEMATOCRIT 33.5 % (32.4-45.2); HEMOGLOBIN 11.6 GM/dL (10.7-15.3); MCH 30.5 pg (25.7-33.7); MCHC 34.5 g/dl (32.0-36.0); MEAN CELL VOLUME 88.4 fl (80-96); MEAN PLT VOLUME 6.7 fl (7.5-11.1); MONO % 5.2 % (3.8-10.2); PLATELET COUNT 428 K/MM3 (134-434); RBC 3.79 M/mm3 (3.60-5.2); RDW 15.1 % (11.6-15.6); WHITE BLOOD COUNT 11.2 K/mm3 (4.0-10.0)
[2019-12-11] MEDS ORDERED: oxyCODONE HCL 5 MG TABLET ONE (07:49)
[2019-12-11] MEDS: oxyCODONE HCL 5 MG TABLET PO PRN ×2 (07:50→21:13)
[2019-12-11 08:12] LABS: BLOOD UREA NITROGEN 12.3 mg/dL (7-18); CALCIUM 8.3 mg/dL (8.5-10.1); CREATININE 0.8 mg/dL (0.55-1.3); POTASSIUM 4.6 mmol/L (3.5-5.1)
[2019-12-11] MEDS ORDERED: amLODIPine BESYLATE 5 MG TABLET (FP) ONE (09:29)
[2019-12-11] MEDS ORDERED: HEPARIN NA (PORCINE) 5,000 UNITS/ML 1ML VIAL ONE (09:30)
[2019-12-11] MEDS ORDERED: VALSARTAN 80 MG TABLET (UD) ONE (09:30)
[2019-12-11] MEDS ORDERED: FOLIC ACID 1 MG TABLET (FP) ONE (09:30)
[2019-12-11] MEDS ORDERED: THIAMINE HCL 100 MG TABLET (FP) ONE (09:30)
[2019-12-11] MEDS ORDERED: DULoxetine HCL 30 MG CAPSULE.DR PO ONE (09:30)
[2019-12-11] MEDS ORDERED: MECLIZINE HCL 25 MG TABLET (FP) ONE (09:30)
[2019-12-11] MEDS: FOLIC ACID 1 MG TABLET (FP) PO SCH (09:35)
[2019-12-11] MEDS: amLODIPine BESYLATE 10 MG TABLET (FP) PO SCH (09:35)
[2019-12-11] MEDS: THIAMINE HCL 100 MG TABLET (FP) PO SCH (09:35)
[2019-12-11] MEDS: VALSARTAN 160 MG TABLET (UD) PO SCH (09:35)
[2019-12-11] MEDS: HEPARIN NA (PORCINE) 5,000 UNITS/ML 1ML VIAL SQ SCH ×2 (09:35→21:14)
[2019-12-11] MEDS: MECLIZINE HCL 25 MG TABLET (FP) PO SCH (09:35)
[2019-12-11] MEDS: DULoxetine HCL 60 MG CAPSULE.DR PO SCH (09:35)
[2019-12-11] MEDS ORDERED: PATIENT'S OWN MEDICATION (NON-FORMULARY) (Amlodipine Bes/Olmesartan Med [Azor 10-40 Mg Tab PO SCH (10:00)
[2019-12-11] MEDS ORDERED: CEFAZOLIN 1 GM in DEXTROSE 5%-WATER - 50 ML IVPB SCH (10:00)
--- NOTE | 2019-12-11 10:43 | CON.CARD ---
Consult Consult Specialty:: Cardiology Referred by:: Dr. Troncoso Reason for Consultation:: Syncope - History of Present Illness Chief Complaint: Syncope History of Present Illness: 69 year old woman with pmh HTN, Hypothyroid, vertigo, neuropathy, etoh abuse, admitted with syncope. Pt seen and examined in the ER in [facility]. Pt states that yesterday she did not eat all day, went to an appointment with her orthopedic then went grocery shopping. when she got home she drank 4 beers. Then after going from a sitting to standing position she states she suddenly lost consciousness. denies any preceding symptoms. no chest pain, palpitations, lightheadedness, dizziness. 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 Cardio/Vascular: Yes: HTN Hepatobiliary: Yes: Other (alcohol abuse) Psych: Yes: Depression Musculoskeletal: Yes: Chronic low back pain Endocrine: Yes: Hypothyroidism - Past Surgical History Past Surgical History: Yes: Cholecystectomy, Joint Replacement (right shoulder sx with screws) - Alcohol/Substance Use Hx Alcohol Use: Yes (4 BEERS/DAY) History of Substance Use: reports: None - Smoking History Smoking history: Current some day smoker Have you smoked in the past 12 months: No Aproximately how many cigarettes per day: 2 - Social History ADL: Independent History of Recent Travel: No Home Medications - Allergies Allergies/Adverse Reactions: Allergies Allergy/AdvReac Type Severity Reaction Status Date / Time minerals [From Enviro Stress] Allergy Intermediate Hives Verified 08/31/19 18:14 vitamin B complex and C Allergy Intermediate Hives Verified 08/31/19 18:14 [From Enviro Stress] vitamin E (d-alpha Allergy Intermediate Hives Verified 08/31/19 18:14 tocopherol) [From Enviro Stress] ciprofloxacin [From Cipro] Allergy Mild Rash Verified 08/31/19 18:14 Penicillins Allergy Mild Rash Verified 08/31/19 18:14 artificial sweeteners Allergy Intermediate Hives Uncoded 08/31/19 18:14 - Home Medications Home Medications: Ambulatory Orders Amlodipine Bes/Olmesartan Med [Babita 10-40 mg Tablet] 1 each PO DAILY 08/14/16 Duloxetine HCl [Cymbalta] 60 mg PO DAILY 08/14/16 Meclizine HCl [Antivert -] 25 mg PO DAILY #7 tablet 08/31/19 Thyroid,Pork [[employer] Thyroid] 15 mg PO ASDIR 08/31/19 Vital Signs: Vital Signs Temperature 98.0 F 12/11/19 09:25 Pulse Rate 82 12/11/19 09:25 Respiratory Rate 18 12/11/19 09:25 Blood Pressure 150/73 12/11/19 09:25 O2 Sat by Pulse Oximetry (%) 100 12/11/19 09:25 - Other Data Labs, Other Data: CBC, BMP 12/11/19 06:50 12/11/19 06:50 INR, PTT INR 0.95 (0.83-1.09) 12/10/19 23:30 Troponin, BNP 12/10/19 23:30 Troponin I < 0.02 Troponin, BNP 12/10/19 23:30 Troponin I < 0.02 Assessment/Plan 69 year old woman with pmh HTN, Hypothyroid, vertigo, neuropathy, etoh abuse, admitted with syncope. Pt seen and examined in the ER in [facility]. Pt states that yesterday she did not eat all day, went to an appointment with her orthopedic then went grocery shopping. when she got home she drank 4 beers. Then after going from a sitting to standing position she states she suddenly lost consciousness. denies any preceding symptoms. no chest pain, palpitations, lightheadedness, dizziness. Syncope -Unlikely cardiac etiology. -Likely orthostatic hypotension. -ekg wnl -cardiac enzymes wnl. -no murmur on exam -ECHO 2015 showed normal LVEF only mild valvular abnl -Check orthostatics. -Can monitor tele x 24 hours, if no arrhythmias can dc tele. -no other inpatient cardiac work up is needed at this time, [facility] outpatient fup for further work up as needed
--- NOTE | 2019-12-11 11:51 | CON.CARD ---
Consult Consult Specialty:: Cardiology Referred by:: ER/Dr. Troncoso Reason for Consultation:: Syncope - History of Present Illness Chief Complaint: Syncope. History of Present Illness: 69 year old woman with pmh HTN, Hypothyroid, vertigo, neuropathy, etoh abuse, admitted with syncope. Pt seen and examined in the ER in [facility]. Pt states that yesterday she did not eat all day, went to an appointment with her orthopedic then went grocery shopping. when she got home she drank 4 beers. Then after going from a sitting to standing position she states she suddenly lost consciousness. denies any preceding symptoms. no chest pain, palpitations, lightheadedness, dizziness. 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 Cardio/Vascular: Yes: HTN Hepatobiliary: Yes: Other (alcohol abuse) Psych: Yes: Depression Musculoskeletal: Yes: Chronic low back pain Endocrine: Yes: Hypothyroidism - Past Surgical History Past Surgical History: Yes: Cholecystectomy, Joint Replacement (right shoulder sx with screws) - Alcohol/Substance Use Hx Alcohol Use: Yes (4 BEERS/DAY) History of Substance Use: reports: None - Smoking History Smoking history: Current some day smoker Have you smoked in the past 12 months: No Aproximately how many cigarettes per day: 2 - Social History ADL: Independent History of Recent Travel: No Home Medications - Allergies Allergies/Adverse Reactions: Allergies Allergy/AdvReac Type Severity Reaction Status Date / Time minerals [From Enviro Stress] Allergy Intermediate Hives Verified 08/31/19 18:14 vitamin B complex and C Allergy Intermediate Hives Verified 08/31/19 18:14 [From Enviro Stress] vitamin E (d-alpha Allergy Intermediate Hives Verified 08/31/19 18:14 tocopherol) [From [employer]viro Stress] ciprofloxacin [From Cipro] Allergy Mild Rash Verified 08/31/19 18:14 Penicillins Allergy Mild Rash Verified 08/31/19 18:14 artificial sweeteners Allergy Intermediate Hives Uncoded 08/31/19 18:14 - Home Medications Home Medications: Ambulatory Orders Amlodipine Bes/Olmesartan Med [Babita 10-40 mg Tablet] 1 each PO DAILY 08/14/16 Duloxetine HCl [Cymbalta] 60 mg PO DAILY 08/14/16 Meclizine HCl [Antivert -] 25 mg PO DAILY #7 tablet 08/31/19 Thyroid,Pork [[employer] Thyroid] 15 mg PO ASDIR 08/31/19 Family Medical History Family History: Denies Review of Systems - Review of Systems Constitutional: denies: No Symptoms, Chills, Diaphoresis, Fever, Lethargy, Loss of Appetite, Malaise, Night Sweats, Unintentional Wgt. Loss, Weakness, Other Eyes: denies: No Symptoms, Blind Spots, Blurred Vision, Double Vision, Eye Pain , Floaters, Photophobia, Recent Change in Vision, Other HENT: denies: No Symptoms, Difficult Swallowing, Ear Discharge, Ear Pain, Epistaxis, Gingival Bleeding, Hearing Loss, Mouth Swelling, Nasal Congestion, Ocular Prosthesis, Throat Pain, Toothache, Ringing in Ears, Other Neck: denies: No Symptoms, Decreased ROM, Lumps, Pain on Movement, Stiffness, Swollen Glands, Tenderness, Other Cardiovascular: denies: No Symptoms, Chest Pain, Edema, Palpitations, Shortness of Breath, Other Respiratory: denies: No Symptoms, Cough, Exercise Intolerance, Hemoptysis, Orthopnea, PND, Snoring, SOB, SOB on Exertion, Wheezing, Other Gastrointestinal: denies: No Symptoms, Abdominal Pain, Bloating, Constipation, Diarrhea, Dysphagia, Indigestion, Melena, Nausea, Rectal Bleeding, Vomiting, Vomiting Blood, Other Genitourinary: denies: No Symptoms, Burning, Discharge, Dysuria, Flank Pain, Frequency, Hematuria, Incontinence, Lesions, Menses, Pain, Testicular Mass, Testicular Pain, Testicular Swelling, Urgency, Vaginal Bleeding, Other Breasts: denies: No Symptoms Reported, See HPI, Breast Implants, Discharge from Nipple, Lumps, Pain, Skin Changes, Other Musculoskeletal: reports: Extremity Pain, Joint Pain. denies: No Symptoms, Back Pain, Crepitus, Decreased ROM, Joint Swelling, Muscle Pain, Muscle Cramps, Muscle Weakness, Other Integumentary: denies: No Symptoms, Blister, Bruising, Change in Color, Eczema, Erythema, Incision, Lesions, Lump, Pallor, Pruritis, Rash, Wound, Other Neurological: reports: Dizziness, Syncope. denies: No Symptoms, Change in LOC, Change in Speech, Confusion, Headache, Incoordination, Numbness, Parasthesia, Pre-Existing Deficit, Seizure, Tremors, Unsteady Gait, Weakness, Other Endocrine: denies: No Symptoms, Excessive Sweating, Flushing, Increased Hunger, Increased Thirst, Intolerance to Cold, Intolerance to Heat, Unexplained Weight Gain, Unexplained Weight Loss, Other Hematology/Lymphatic: denies: No Symptoms, Easily Bruised, Excessive Bleeding, Swollen Glands, Other Psychiatric: denies: No Symptoms, Altered Sleep Pattern, Anxiety, Depression, Hallucinations, Panic, Paranoia, Suicidal, Other - Risk Factors Known Risk Factors: Yes: Hypercholesterolemia Vital Signs: Vital Signs Temperature 98.0 F 12/11/19 09:25 Pulse Rate 82 12/11/19 09:25 Respiratory Rate 18 12/11/19 09:25 Blood Pressure 150/73 12/11/19 09:25 O2 Sat by Pulse Oximetry (%) 100 12/11/19 09:25 Constitutional: Yes: No Distress, Calm Eyes: Yes: Conjunctiva Clear, EOM Intact HENT: Yes: Other (ecchymoses periorbital) Respiratory: Yes: Regular, CTA Bilaterally. No: Rales, Rhonchi, Wheezes Gastrointestinal: Yes: Normal Bowel Sounds, Soft. No: Distention, Tenderness Cardiovascular: Yes: Regular Rate and Rhythm. No: Bradycardia, Tachycardia, Pulse Irregular, Gallop, Rub, Varicosities JVD: No Carotid Bruit: No PMI: Non-Displaced Heart Sounds: Yes: S1, S2. No: Split S2, S3, S4, Clicks, Gallop, Rub, Bruit Murmur: No: Systolic Murmur, Diastolic Murmur Extremities: Yes: WNL Edema: No Peripheral Pulses WNL: Yes Peripheral Pulses: 2+ Left Doralis Pedis, 2+ Right Dorsalis Pedis Neurological: Yes: Alert, Oriented Psychiatric: Yes: Alert, Oriented - Other Data Labs, Other Data: CBC, BMP 12/11/19 06:50 12/11/19 06:50 INR, PTT INR 0.95 (0.83-1.09) 12/10/19 23:30 Troponin, BNP 12/10/19 23:30 Troponin I < 0.02 Troponin, BNP 12/10/19 23:30 Troponin I < 0.02 normal sinus rhythm. normal ECG Echo: Report Reviewed Imaging - Results Chest X-ray: Report Reviewed, Image Reviewed EKG: Report Reviewed, Image Reviewed Other: Report Reviewed, Image Reviewed Assessment/Plan 69 year old woman with pmh HTN, Hypothyroid, vertigo, neuropathy, etoh abuse, admitted with syncope. Pt seen and examined in the ER in [facility]. Pt states that yesterday she did not eat all day, went to an appointment with her orthopedic then went grocery shopping. when she got home she drank 4 beers. Then after going from a sitting to standing position she states she suddenly lost consciousness. denies any preceding symptoms. no chest pain, palpitations, lightheadedness, dizziness. Syncope -Unlikely cardiac etiology. -Likely orthostatic hypotension. -ekg wnl -cardiac enzymes wnl. -no murmur on exam -ECHO 2015 showed normal LVEF only mild valvular abnl -Check orthostatics. -Can monitor tele x 24 hours, if no arrhythmias can dc tele. -no other inpatient cardiac work up is needed at this time, [facility] outpatient fup for further work up as needed
--- NOTE | 2019-12-11 12:36 | EKG ---
Test Reason : Blood Pressure : / mmHG Vent. Rate : 063 BPM Atrial Rate : 063 BPM P-R Int : 192 ms QRS Dur : 084 ms QT Int : 424 ms P-R-T Axes : 054 076 040 degrees QTc Int : 433 ms NORMAL SINUS RHYTHM NORMAL ECG Confirmed by MD PETERSON GREGORY ([id number]) on 12/11/2019 12:36:32 PM Referred By: Confirmed By:NICK PETERSON MD
--- NOTE | 2019-12-11 14:00 | PN ---
Progress Note, Physician Chief Complaint: Syncope R Maxillary Sinus Fracture Nasal Bridge Fracture History of Present Illness: Previous notes and event reviewed awake and alert [facility] complain of frontal PLAZA denies visual disturbances denies complaints of chest pain or SOB no facial tendernes on palpation - Current Medication List Current Medications: Active Medications Acetaminophen (Tylenol -) 650 mg PO Q6H PRN PRN Reason: PAIN LEVEL 1-5 Amlodipine Besylate (Norvasc -) 10 mg PO DAILY [facility] Last Admin: 12/11/19 09:35 Dose: 10 mg Duloxetine HCl (Cymbalta -) 60 mg PO DAILY [facility] Last Admin: 12/11/19 09:35 Dose: 60 mg Folic Acid (Folic Acid -) 1 mg PO DAILY [facility] Last Admin: 12/11/19 09:35 Dose: 1 mg Heparin Sodium (Porcine) (Heparin -) 5,000 unit SQ BID [facility] Last Admin: 12/11/19 09:35 Dose: 5,000 unit Sodium Chloride (Normal Saline -) 1,000 mls @ 75 mls/hr IV ASDIR [facility] Last Admin: 12/11/19 06:26 Dose: 75 mls/hr Lorazepam (Ativan) 0.5 mg PO BID PRN PRN Reason: ANXIETY Meclizine HCl (Antivert -) 25 mg PO DAILY [facility] Last Admin: 12/11/19 09:35 Dose: 25 mg Ondansetron HCl (Zofran Injection) 4 mg IVPUSH Q8H PRN PRN Reason: NAUSEA Stop: 12/15/19 23:59 Oxycodone HCl (Roxicodone -) 5 mg PO Q6H PRN PRN Reason: PAIN LEVEL 6-10 Last Admin: 12/11/19 07:50 Dose: 5 mg Thiamine HCl (Vitamin B1 -) 100 mg PO DAILY [facility] Last Admin: 12/11/19 09:35 Dose: 100 mg Valsartan (Diovan -) 160 mg PO DAILY [facility] Last Admin: 12/11/19 09:35 Dose: 160 mg - Objective Vital Signs: Vital Signs Temperature 99.0 F 12/11/19 13:52 Pulse Rate 83 12/11/19 13:52 Respiratory Rate 18 12/11/19 13:52 Blood Pressure 132/61 12/11/19 13:52 O2 Sat by Pulse Oximetry (%) 99 12/11/19 13:52 Constitutional: Yes: No Distress, Calm Eyes: Yes: Conjunctiva Clear HENT: Yes: Atraumatic, Other (nasal bridge swelling) Cardiovascular: Yes: Regular Rate and Rhythm Respiratory: Yes: Regular, CTA Bilaterally Gastrointestinal: Yes: Normal Bowel Sounds, Soft Musculoskeletal: Yes: Muscle Weakness Extremities: Yes: WNL Edema: No Integumentary: Yes: Bruising (under R eye) Wound/Incision: Yes: Steri Strips (nasal bridge) Neurological: Yes: Alert, Oriented Psychiatric: Yes: Alert, Oriented Labs: CBC, BMP 12/11/19 06:50 12/11/19 06:50 INR, PTT INR 0.95 (0.83-1.09) 12/10/19 23:30 Problem List - Problems (1) Alcohol abuse Assessment/Plan: -Consult Dr Guevara -Thiamine, Folic Acid, MVI -fall precautions -Ativan prn for agitation/anxiety Code(s): F10.10 - ALCOHOL ABUSE, UNCOMPLICATED (2) Hypothyroid Assessment/Plan: -TSH 235.00 -repeat TSH and T4 ordered -Endoci Code(s): E03.9 - HYPOTHYROIDISM, UNSPECIFIED Qualifiers: Hypothyroidism type: unspecified Qualified Code(s): E03.9 - Hypothyroidism , unspecified (3) Nasal fracture Assessment/Plan: -ENT consult -pain control -Facial CT scan shows fracture involving the medial aspect of the anterior wall of the right maxillary sinus, medial aspect of the floor of the orbit with extraconal air pocket, fracture involving the medial wall o the right maxillary sinus anteriorly with bony fragments displaced medially, fracture of the right uncinate process of the maxilla, punctate displaced fracture at the tip of the anterior nasal spine, fracture of the nasal septum -Ceftriaxone -leukocytosis -ID consult -Tetanus injection Code(s): S02.2XXA - FRACTURE OF NASAL BONES, INIT ENCNTR FOR CLOSED FRACTURE (4) Right maxillary fracture Assessment/Plan: -ENT consult -pain control -Facial CT scan shows fracture involving the medial aspect of the anterior wall of the right maxillary sinus, medial aspect of the floor of the orbit with extraconal air pocket, fracture involving the medial wall o the right maxillary sinus anteriorly with bony fragments displaced medially, fracture of the right uncinate process of the maxilla, punctate displaced fracture at the tip of the anterior nasal spine, fracture of the nasal septum -Ceftriaxone -Leukocytosis -ID consult -Tetanus injection Code(s): S02.40CA - MAXILLARY FRACTURE, RIGHT SIDE, INIT (5) Syncope Assessment/Plan: -Cardiology and Neurology consult -Tele monitoring -Carotid doppler -fall precaution -Head CT scan shows no CT evidence of of acute intracranial pathology -C-Spine CT scan shows no evidence of acute fracture, compression deformities, subluxation, prevertebral soft tissue swelling, multilevel loss of disc space height with degenerative anterior spondylosis -neuro checks 4h Code(s): R55 - SYNCOPE AND COLLAPSE (6) HTN (hypertension) Assessment/Plan: -Amlodipine, Diovan -low Na diet Code(s): I10 - ESSENTIAL (PRIMARY) HYPERTENSION (7) Dizziness Assessment/Plan: -Meclizine Code(s): R42 - DIZZINESS AND GIDDINESS Assessment/Plan see problem list dvt ppx
--- NOTE | 2019-12-11 14:10 | PN ---
Progress Note (short form) - Note Progress Note: ID consult dictated imp/reccd s/p syncope at home was drinking beer and watching football with her boyfriend right maxillary sinus fracture with a/f level in the sinus alert no diplopia no fevers pen allergy- got cefazolin in the ed will treat with ceftriaxone pending ENT evaluation Problem List - Problems (1) Syncope Code(s): R55 - SYNCOPE AND COLLAPSE (2) Right maxillary fracture Code(s): S02.40CA - MAXILLARY FRACTURE, RIGHT SIDE, INIT (3) Nasal fracture Code(s): S02.2XXA - FRACTURE OF NASAL BONES, INIT ENCNTR FOR CLOSED FRACTURE (4) Alcohol abuse Code(s): F10.10 - ALCOHOL ABUSE, UNCOMPLICATED (5) Allergy to multiple antibiotics Code(s): Z88.1 - ALLERGY STATUS TO OTHER ANTIBIOTIC AGENTS STATUS
[2019-12-11] MEDS: CEFTRIAXONE 1 GM in DEXTROSE 5%-WATER - 50 ML IVPB SCH (14:12)
--- NOTE | 2019-12-11 14:52 | CONS ---
INFECTIOUS DISEASE CONSULTATION DATE OF CONSULTATION: DATE OF DICTATION: 12/11/2019 HISTORY: This is a 69-year-old woman who I am asked to see for a nasal and maxillary sinus fracture with an air-fluid level in her sinus. She is awake and alert. She gives a history of syncope at home. She reports that she had been watching football with her boyfriend, and she was walking to the bathroom, and she blacked out. She fell on her face. She came to the emergency room. Earlier that day, which is yesterday, she had been to the orthopedist, had an x-ray of her shoulder, was told she had arthritis. She had gone grocery shopping for a friend and then this was after getting home and while watching football. She also reports drinking several beers, which is her usual pattern. She denies any fevers or chills. She denies any nausea or vomiting. She does report facial pain. PAST MEDICAL HISTORY: Notable for she has a history of vertigo, hypertension, alcohol abuse, depression, chronic low back pain, hypothyroidism. She has a history of neuropathy in the past as well. SURGICAL HISTORY: Notable for cholecystectomy and joint replacement. SOCIAL HISTORY: She smokes occasionally. She drinks several beers a day. She has no history of substance use. No history of any travel. She is quite independent. MEDICATIONS: Include amlodipine, Cymbalta, Antivert, and pork thyroid. ALLERGIES: She is allergic to PENICILLIN, which gives her a rash, CIPROFLOXACIN, VITAMIN E, VITAMIN B, MINERALS, and ARTIFICAL SWEETENERS. FAMILY HISTORY: Unremarkable. REVIEW OF SYSTEMS: She notes she has some face pain. Otherwise, she is quite alert. PHYSICAL EXAMINATION: General: She is awake and alert. She is a pleasant woman in no acute distress. Vital Signs: Temperature 99, pulse 83, blood pressure 132/61, respiratory rate is 18. She is saturating 99%. HEENT: Notable for ecchymosis below both eyes. Her extraocular movements are intact. She has no diplopia. She has no thrush. She is able to open her mouth easily. Lungs: Clear to auscultation. Heart: Regular rate and rhythm. Abdomen: Soft, nontender. Extremities: Without edema. DIAGNOSTIC DATA: White count is 11.2, hemoglobin 11.6, platelets 428. INR is normal. BUN 12, creatinine 0.8. LFTs are normal. She had a cervical spine CT that showed no acute fracture. She has got some DJD. She had facial bone CT that shows this maxillary sinus fracture of the medial aspect of the right maxillary sinus as well as a fracture of the nasal septum. Her head CT shows no acute intracranial pathology, and her chest x-ray is clear. In summary, this is a 69-year-old woman status post syncope at home, history of alcohol use with right maxillary sinus fracture and fracture of her nasal septum with air-fluid level in the sinus. She has history of PENICILLIN allergy. Got cefazolin in the ER. We will treat with ceftriaxone pending ENT evaluation. Her problems include syncope, right maxillary fracture and nasal fracture, alcohol abuse with allergy to PENICILLIN and CIPROFLOXACIN. SHELLY RIVERA M.D. [id number]
[2019-12-11 16:32] VITALS: BMI 30.8
[2019-12-12 06:44] LABS: HEMATOCRIT 33.6 % (32.4-45.2); HEMOGLOBIN 11.2 GM/dL (10.7-15.3); MCH 29.9 pg (25.7-33.7); MCHC 33.5 g/dl (32.0-36.0); MEAN CELL VOLUME 89.3 fl (80-96); MEAN PLT VOLUME 6.6 fl (7.5-11.1); PLATELET COUNT 399 K/MM3 (134-434); RBC 3.76 M/mm3 (3.60-5.2); RDW 15.3 % (11.6-15.6); WHITE BLOOD COUNT 7.1 K/mm3 (4.0-10.0)
[2019-12-12] MEDS: SODIUM CHLORIDE 1,000 ML IV SCH ×3 (07:10→21:33)
[2019-12-12 07:14] LABS: BILIRUBIN,TOTAL 0.5 mg/dL (0.2-1); BLOOD UREA NITROGEN 9.1 mg/dL (7-18); CALCIUM 7.9 mg/dL (8.5-10.1); CREATININE 0.7 mg/dL (0.55-1.3); POTASSIUM 3.4 mmol/L (3.5-5.1); TOT PROT 5.7 g/dl (6.4-8.2)
[2019-12-12] MEDS ORDERED: DULoxetine HCL 30 MG CAPSULE.DR PO ONE (09:00)
[2019-12-12] MEDS ORDERED: DEXTROSE 5%-WATER - 50 ML IVPB ONE (09:03)
[2019-12-12] MEDS ORDERED: cefTRIAXone SODIUM 1 GM VIAL ONE (09:03)
[2019-12-12] MEDS ORDERED: POTASSIUM CHLORIDE TABS 10 MEQ TABLET.ER (FP) PO ONE (10:30)
--- NOTE | 2019-12-12 10:34 | PN ---
Progress Note, Physician Chief Complaint: AWAKE ALERT EVENTS REVIEWED NO FEVER OR CHILLS - Current Medication List Current Medications: Active Medications Acetaminophen (Tylenol -) 650 mg PO Q6H PRN PRN Reason: PAIN LEVEL 1-5 Amlodipine Besylate (Norvasc -) 10 mg PO DAILY [facility] Last Admin: 12/11/19 09:35 Dose: 10 mg Duloxetine HCl (Cymbalta -) 60 mg PO DAILY [facility] Last Admin: 12/11/19 09:35 Dose: 60 mg Folic Acid (Folic Acid -) 1 mg PO DAILY [facility] Last Admin: 12/11/19 09:35 Dose: 1 mg Heparin Sodium (Porcine) (Heparin -) 5,000 unit SQ BID [facility] Last Admin: 12/11/19 21:14 Dose: 5,000 unit Sodium Chloride (Normal Saline -) 1,000 mls @ 75 mls/hr IV ASDIR [facility] Last Admin: 12/11/19 06:26 Dose: 75 mls/hr Ceftriaxone Sodium 1 gm/ (Dextrose) 50 mls @ 100 mls/hr IVPB DAILY [facility]; Protocol Last Admin: 12/11/19 14:12 Dose: 200 mls/hr Lorazepam (Ativan) 0.5 mg PO BID PRN PRN Reason: ANXIETY Meclizine HCl (Antivert -) 25 mg PO DAILY [facility] Last Admin: 12/11/19 09:35 Dose: 25 mg Multivitamins/Minerals/Vitamin C (Tab-A-Vit -) 1 tab PO DAILY [facility] Ondansetron HCl (Zofran Injection) 4 mg IVPUSH Q8H PRN PRN Reason: NAUSEA Stop: 12/15/19 23:59 Oxycodone HCl (Roxicodone -) 5 mg PO Q6H PRN PRN Reason: PAIN LEVEL 6-10 Last Admin: 12/11/19 21:13 Dose: 5 mg Potassium Chloride (K-Dur -) 20 meq PO ONCE ONE Stop: 12/12/19 10:26 Thiamine HCl (Vitamin B1 -) 100 mg PO DAILY [facility] Last Admin: 12/11/19 09:35 Dose: 100 mg Valsartan (Diovan -) 160 mg PO DAILY [facility] Last Admin: 12/11/19 09:35 Dose: 160 mg - Objective Vital Signs: Vital Signs Temperature 98.3 F 12/12/19 06:00 Pulse Rate 88 12/12/19 06:00 Respiratory Rate 18 12/12/19 06:00 Blood Pressure 144/87 12/12/19 06:00 O2 Sat by Pulse Oximetry (%) 98 12/11/19 20:47 Constitutional: Yes: Mild Distress Eyes: Yes: Other (B/L ECCHYMOSIS) Cardiovascular: Yes: Regular Rate and Rhythm Respiratory: Yes: WNL Gastrointestinal: Yes: WNL Genitourinary: Yes: WNL Musculoskeletal: Yes: Muscle Weakness Edema: Yes Edema: LLE: Trace, RLE: Trace Neurological: Yes: Pre-Existing Deficit Labs: CBC, BMP 12/12/19 06:20 12/12/19 06:20 INR, PTT INR 0.95 (0.83-1.09) 12/10/19 23:30 Problem List - Problems (1) Alcohol abuse Code(s): F10.10 - ALCOHOL ABUSE, UNCOMPLICATED (2) Allergy to multiple antibiotics Code(s): Z88.1 - ALLERGY STATUS TO OTHER ANTIBIOTIC AGENTS STATUS (3) Hypothyroid Code(s): E03.9 - HYPOTHYROIDISM, UNSPECIFIED Qualifiers: Hypothyroidism type: unspecified Qualified Code(s): E03.9 - Hypothyroidism , unspecified (4) Nasal fracture Code(s): S02.2XXA - FRACTURE OF NASAL BONES, INIT ENCNTR FOR CLOSED FRACTURE (5) Right maxillary fracture Code(s): S02.40CA - MAXILLARY FRACTURE, RIGHT SIDE, INIT (6) Syncope Code(s): R55 - SYNCOPE AND COLLAPSE (7) HTN (hypertension) Code(s): I10 - ESSENTIAL (PRIMARY) HYPERTENSION (8) Osteoarthritis Code(s): M19.90 - UNSPECIFIED OSTEOARTHRITIS, UNSPECIFIED SITE Assessment/Plan PT EVAL PLACEMENT TO JARRETT IF NEEDED IV ABX PER ID MAXILLARY FRACTURE ENT CONSULT ATIVAN WAS GIVEN FOR ETOH WITHDRAWELS DETOX CONSULT WAS ORDERED THIMAINE/FOLIC ACID ATIVAN PRN
[2019-12-12] MEDS: VALSARTAN 160 MG TABLET (UD) PO SCH (10:41)
[2019-12-12] MEDS: DULoxetine HCL 60 MG CAPSULE.DR PO SCH (10:41)
[2019-12-12] MEDS: amLODIPine BESYLATE 10 MG TABLET (FP) PO SCH (10:41)
[2019-12-12] MEDS: FOLIC ACID 1 MG TABLET (FP) PO SCH (10:41)
[2019-12-12] MEDS: HEPARIN NA (PORCINE) 5,000 UNITS/ML 1ML VIAL SQ SCH ×2 (10:41→21:33)
[2019-12-12] MEDS: MULTIVITAMINS (DAILY MVI) TABLET (FP) PO SCH (10:41)
[2019-12-12] MEDS: THIAMINE HCL 100 MG TABLET (FP) PO SCH (10:41)
[2019-12-12] MEDS: CEFTRIAXONE 1 GM in DEXTROSE 5%-WATER - 50 ML IVPB SCH (10:42)
[2019-12-12] MEDS: MECLIZINE HCL 25 MG TABLET (FP) PO SCH (13:22)
[2019-12-12] MEDS: oxyCODONE HCL 5 MG TABLET PO PRN (14:01)
--- NOTE | 2019-12-12 15:07 | PN ---
Progress Note, Physician Chief Complaint: The patient appears comfortable at the time of exam. She complains of headache. She reports no chest pain, shortness of breath, palpitation or dizziness. Telemetry reviewed, it showed sinus rhythm without arrhythmia. History of Present Illness: 69 year old woman with a PMHx of HTN, hypothyroid, vertigo, neuropathy, etoh abuse, admitted with syncope with facial injury. Carotid duplex 12/11/19 showed minimal athrosclerotic plaques without hemodynamic stenosis. Telemetry reviewed, it showed sinus rhythm without arrhythmia. - Current Medication List Current Medications: Active Medications Acetaminophen (Tylenol -) 650 mg PO Q6H PRN PRN Reason: PAIN LEVEL 1-5 Amlodipine Besylate (Norvasc -) 10 mg PO DAILY [facility] Last Admin: 12/12/19 10:41 Dose: 10 mg Duloxetine HCl (Cymbalta -) 60 mg PO DAILY [facility] Last Admin: 12/12/19 10:41 Dose: 60 mg Folic Acid (Folic Acid -) 1 mg PO DAILY [facility] Last Admin: 12/12/19 10:41 Dose: 1 mg Heparin Sodium (Porcine) (Heparin -) 5,000 unit SQ BID [facility] Last Admin: 12/12/19 10:41 Dose: 5,000 unit Sodium Chloride (Normal Saline -) 1,000 mls @ 75 mls/hr IV ASDIR [facility] Last Admin: 12/12/19 10:48 Dose: 75 mls/hr Ceftriaxone Sodium 1 gm/ (Dextrose) 50 mls @ 100 mls/hr IVPB DAILY [facility]; Protocol Last Admin: 12/12/19 10:42 Dose: 100 mls/hr Lorazepam (Ativan) 0.5 mg PO BID PRN PRN Reason: ANXIETY Meclizine HCl (Antivert -) 25 mg PO DAILY [facility] Last Admin: 12/12/19 13:22 Dose: 25 mg Multivitamins/Minerals/Vitamin C (Tab-A-Vit -) 1 tab PO DAILY [facility] Last Admin: 12/12/19 10:41 Dose: 1 tab Ondansetron HCl (Zofran Injection) 4 mg IVPUSH Q8H PRN PRN Reason: NAUSEA Stop: 12/15/19 23:59 Oxycodone HCl (Roxicodone -) 5 mg PO Q6H PRN PRN Reason: PAIN LEVEL 6-10 Last Admin: 12/12/19 14:01 Dose: 5 mg Thiamine HCl (Vitamin B1 -) 100 mg PO DAILY [facility] Last Admin: 12/12/19 10:41 Dose: 100 mg Valsartan (Diovan -) 160 mg PO DAILY [facility] Last Admin: 12/12/19 10:41 Dose: 160 mg - Objective Vital Signs: Vital Signs Temperature 98.6 F 12/12/19 14:00 Pulse Rate 90 12/12/19 14:00 Respiratory Rate 16 12/12/19 14:00 Blood Pressure 154/89 12/12/19 14:00 O2 Sat by Pulse Oximetry (%) 98 12/12/19 09:00 General: Well developed. Well nourished. No acute distress. Head: Mild eye lid edema and ecchymosis. Neck: Supple. No JVD. No bruits. Heart: Normal S1, S2: Regular rhythm and rate. No murmur. No gallop or rub. Lungs: Symmetrical air entry. Clear to auscultation. No crackles. No wheezing or rhonchi. Abdomen: Soft. Bowel sound positive. Non tender. No masses. Extremities: No edema. No clubbing or cyanosis. Labs: CBC, BMP 12/12/19 06:20 12/12/19 06:20 INR, PTT INR 0.95 (0.83-1.09) 12/10/19 23:30 Assessment/Plan 69 year old woman with a PMHx of HTN, hypothyroid, vertigo, neuropathy, etoh abuse, admitted with syncope with facial injury. Carotid duplex 12/11/19 showed minimal athrosclerotic plaques without hemodynamic stenosis. Telemetry reviewed, it showed sinus rhythm without arrhythmia. Syncope -Unlikely cardiac etiology. -Likely orthostatic hypotension. -ekg wnl -cardiac enzymes wnl. -ECHO 2016 showed normal LVEF only mild valvular abnl -Check orthostatics. -Tele shows no arrhythmias. May discontinue tele. -May add low dose beta-dennis for better heart rate and BP control. -no other inpatient cardiac work up is needed at this time, [facility] outpatient fup for further work up as needed. Please do not hesitate to call us for reconsult at any time if any further questions or additional issue arises regarding this patient.
--- NOTE | 2019-12-12 16:43 | PN ---
Progress Note (short form) - Note Progress Note: feels well alert Vital Signs Period Temp Pulse Resp BP Sys/Smith Pulse Ox Last 24 Hr 97.3 F-98.6 F 77-90 16-18 135-155/79-94 98-98 cor-rrr lungs clear abd soft,nt ext no edema +ecchymoses of the face unchanged CBC, BMP 12/12/19 06:20 12/12/19 06:20 a/p continue ceftriaxone awaiting ent evaluation s/p fall with maxiilary sinus fracture Problem List - Problems (1) Syncope Code(s): R55 - SYNCOPE AND COLLAPSE (2) Right maxillary fracture Code(s): S02.40CA - MAXILLARY FRACTURE, RIGHT SIDE, INIT (3) Nasal fracture Code(s): S02.2XXA - FRACTURE OF NASAL BONES, INIT ENCNTR FOR CLOSED FRACTURE (4) Alcohol abuse Code(s): F10.10 - ALCOHOL ABUSE, UNCOMPLICATED (5) Allergy to multiple antibiotics Code(s): Z88.1 - ALLERGY STATUS TO OTHER ANTIBIOTIC AGENTS STATUS
--- NOTE | 2019-12-12 20:09 | CONSULT ---
Consult - text type - Consultation Consultation Note: NEUROLOGY CONSULTATION is greatly appreciated: Events reviewed, Patient examined. This 69 yo RH woman lives with her partner of 15 years. PMH sig for hTN, Hypothyroidism, depression and ETOH. Maintained on:Amlodipine Bes/Olmesartan; Duloxetine 60; Meclizine (since Aug) and Thyroid,Pork Evaluated for vertigo in Aug. Given meclizine. S/P distant right humerus fracture requiring ORIF, Bone grafts, complicated by chronic right radial mononeuropathy. Complains of chronic memory problems. Tuesday was watching football and drinking beer. Went to kitchen and "blacked out " without any warning that she can recall. Believes her roommate found her unconscious, then "in and out." Recalls arrival of EMS and transport to [facility]. Complains of dull frontal headache which persists and nausea and vomiting last night which improved with zofran CT of head (reviewed): B/L frontal and anterior temporal atrophy. Cervical CT: Diffuse DJD without traumatic changes. Duplex Unremarkable Facial CT: Multiple right maxillary sinus fractures including the floor of the orbit. Nasal fractures. TSH= 235 !!! COLBY: NO=158/92 B/L orbital ecchymoses and cheek ecchymoses. No Salazar's signs. Sl reduced neck ROM without tenderness. No Bruits. Multiple right arm scars. NEURO: Awake, alert. Ox 3. Recalls 2 of 3 at 3 mins. No frontal release findings. Fluent speech Full aguilar. Min left abduction deficit without diplopia. No facial. Gag OK Motor: No drift. Mild right wrist and finger extensor weakness. Otherwise normal strength. Brisk symmetrical reflexes. Toes downgoing. - Cogwheeling Coord: No FTN dystaxia Sensory: Normal. Romberg- Gait: Sl wide-based. Sl shuffle. IMP: Mild B/L cerebral dysfunction Mild, chronic right radial mononeuropathy Syncope vs seizure vs fall secondary to intoxication Facial fractures Toxic metabolic encephalopathy- Myxedema SUGGEST: Agree with telemetry- r/o Bradyarrythmia Check orthostatic BPs Urgent Endocrine consultation for Myxedema Check B12, B1, RPR, Repeat TSH, T4. Urine for U/A, C&S. BAL? Tox screen? Give thiamine 200 mg IV q 8 H x 72. First dose stat. Continue Lorazepam and observe for signs of DT's. Thank You very Much, Herrera Carney MD
[2019-12-12] MEDS: THIAMINE HCL 200 MG/2 ML VIAL IVPB SCH (21:33)
--- NOTE | 2019-12-12 21:39 | CONSULT ---
Consult - text type - Consultation Consultation Note: ENT consult 69 yo woman with facial fractures due to a fall. Apparently had syncope at home. Only related complaints are facial/head soreness, facial swelling, stuffy nose, and bruising. The swelling and stuffiness are improving. Thinks her nose actually looks better than it did before the injury. Jaw and chewing feel ok. No numbness/tingling. CT shows a crooked nose with a comminuted nasal bone fracture, right anterior maxillary wall fracture, deviated nasal septum, and no evident septal hematoma. P/WDWN WF laying comfortably in bed in NAD Face: right midfacial edema and ecchymosis, mild tenderness over the nose and right cheek. Caudal septum is midline, slit like nostrils, patent nasal cavities Nasal dorsum is grossly midline with edema and overlying steristrips Imp: multiple facial fractures without evident septal hematoma or orbital blowout Plan: Closed or open reduction are options, but no need for surgical intervention at this time, based on lack of obvious deformity and no patient complaints regarding appearance. Outpatient follow up if not satisfied with appearance or breathing.
--- NOTE | 2019-12-12 21:56 | CONSULT ---
Consult Consult Specialty:: Endocrine Referred by:: Mohit WAYNE Reason for Consultation:: Hypothyroidism myxedema - History of Present Illness Chief Complaint: passed out at home History of Present Illness: 69 year old female with PMHX of Hypothyrodism,(non compliant with medication), HTN, Depression, Vertigo, Neuropathy, and alcohol abuse (4 12oz coors lights daily for "pain", no hx w/d seizures) presented from home after a fall,after having drank 2 beers,got up from chair and did not remember what happened next found herself on the floor face down,injured her nose, and face sustaining face trauma,post syncopal episode.her friend was able to call ems when she arrived she denied nausea vomiting or loss of vision.she is coherent to time and place, and has no neurological deficits. - Past Medical History PHARMACY INFORMATICIST: Yes: Vertigo Cardio/Vascular: Yes: HTN Hepatobiliary: Yes: Other (alcohol abuse) ...: No Psych: Yes: Depression Musculoskeletal: Yes: Chronic low back pain Endocrine: Yes: Hypothyroidism - Past Surgical History Past Surgical History: Yes: Cholecystectomy, Joint Replacement (right shoulder sx with screws) - Alcohol/Substance Use Hx Alcohol Use: Yes (4 BEERS/DAY) History of Substance Use: reports: None - Smoking History Smoking history: Current some day smoker Have you smoked in the past 12 months: Yes Aproximately how many cigarettes per day: 3 - Social History ADL: Independent History of Recent Travel: No Home Medications - Allergies Allergies/Adverse Reactions: Allergies Allergy/AdvReac Type Severity Reaction Status Date / Time minerals [From Enviro Stress] Allergy Intermediate Hives Verified 08/31/19 18:14 vitamin B complex and C Allergy Intermediate Hives Verified 08/31/19 18:14 [From Enviro Stress] vitamin E (d-alpha Allergy Intermediate Hives Verified 08/31/19 18:14 tocopherol) [From Enviro Stress] ciprofloxacin [From Cipro] Allergy Mild Rash Verified 08/31/19 18:14 Penicillins Allergy Mild Rash Verified 08/31/19 18:14 artificial sweeteners Allergy Intermediate Hives Uncoded 08/31/19 18:14 - Home Medications Home Medications: Ambulatory Orders Amlodipine Bes/Olmesartan Med [Babita 10-40 mg Tablet] 1 each PO DAILY 08/14/16 Duloxetine HCl [Cymbalta] 60 mg PO DAILY 08/14/16 Meclizine HCl [Antivert -] 25 mg PO DAILY #7 tablet 08/31/19 Thyroid,Pork [Reuse Technician Thyroid] 15 mg PO ASDIR 08/31/19 Review of Systems - Review of Systems Constitutional: reports: Lethargy Eyes: reports: No Symptoms HENT: reports: No Symptoms Neck: reports: Stiffness Cardiovascular: reports: No Symptoms Respiratory: reports: No Symptoms Gastrointestinal: reports: Bloating, Constipation Genitourinary: reports: No Symptoms Breasts: reports: No Symptoms Reported Musculoskeletal: reports: Joint Swelling, Muscle Pain, Muscle Cramps Neurological: reports: No Symptoms Endocrine: reports: Unexplained Weight Gain Physical Exam Vital Signs: Vital Signs Temperature 97.4 F L 12/12/19 18:00 Pulse Rate 81 12/12/19 18:00 Respiratory Rate 12/12/19 18:00 Blood Pressure 135/92 12/12/19 18:00 O2 Sat by Pulse Oximetry (%) 98 12/12/19 09:00 Constitutional: Yes: Calm Eyes: Yes: Conjunctiva Clear, EOM Intact, PERRL, Other HENT: Yes: Normocephalic, Nasal Congestion, Other (rt periorbital echymotic , nasal bridge eschar) Neck: Yes: Trachea Midline Cardiovascular: Yes: Regular Rate and Rhythm Respiratory: Yes: CTA Bilaterally Gastrointestinal: Yes: Normal Bowel Sounds ...Rectal Exam: Yes: Deferred Renal/: Yes: WNL Musculoskeletal: Yes: WNL Extremities: Yes: WNL Edema: No Neurological: Yes: Alert, Oriented Labs: CBC, BMP 12/12/19 06:20 12/12/19 06:20 Problem List - Problems (1) Alcohol abuse Problems reviewed: Yes Code(s): F10.10 - ALCOHOL ABUSE, UNCOMPLICATED (2) Allergy to multiple antibiotics Problems reviewed: Yes Code(s): Z88.1 - ALLERGY STATUS TO OTHER ANTIBIOTIC AGENTS STATUS (3) Hypothyroid Problems reviewed: Yes Code(s): E03.9 - HYPOTHYROIDISM, UNSPECIFIED Qualifiers: Hypothyroidism type: unspecified Qualified Code(s): E03.9 - Hypothyroidism , unspecified (4) Nasal fracture Code(s): S02.2XXA - FRACTURE OF NASAL BONES, INIT ENCNTR FOR CLOSED FRACTURE (5) Right maxillary fracture Problems reviewed: Yes Code(s): S02.40CA - MAXILLARY FRACTURE, RIGHT SIDE, INIT (6) Syncope Problems reviewed: Yes Code(s): R55 - SYNCOPE AND COLLAPSE (7) Myxedema Assessment/Plan: ivj synthroid 50mcg daily Problems reviewed: Yes Code(s): E03.9 - HYPOTHYROIDISM, UNSPECIFIED Assessment/Plan Current Active Problems Alcohol abuse (Acute) Allergy to multiple antibiotics (Acute) Hypothyroid (Acute) Nasal fracture (Acute) Right maxillary fracture (Acute) Syncope (Acute) Unwitnessed fall (Acute) Abnormal Lab Results 12/12/19 12/12/19 06:20 06:20 MPV 6.6 L Potassium 3.4 L Chloride 113 H Anion Gap 4 L Calcium 7.9 L Total Protein 5.7 L Albumin 3.0 L Laboratory Results - last 24 hr 12/12/19 12/12/19 06:20 06:20 WBC 7.1 RBC 3.76 Hgb 11.2 Hct 33.6 MCV 89.3 MCH 29.9 MCHC 33.5 RDW 15.3 Plt Count 399 MPV 6.6 L Sodium 142 Potassium 3.4 L Chloride 113 H Carbon Dioxide 25 Anion Gap 4 L BUN 9.1 Creatinine 0.7 Est GFR (CKD-EPI)AfAm 103.91 Est GFR (CKD-EPI)NonAf 89.65 Random Glucose 101 Calcium 7.9 L Total Bilirubin 0.5 AST 20 ALT 20 Alkaline Phosphatase 92 Total Protein 5.7 L Albumin 3.0 L Laboratory Tests 12/10/19 23:30 TSH 235.00 H plan: synthyroid 50mcg iv daily repeat tsh free t4
[2019-12-13] MEDS: SODIUM CHLORIDE 1,000 ML IV SCH (05:27)
[2019-12-13] MEDS: LEVOTHYROXINE SODIUM 100 MCG VIAL IVPUSH SCH (06:29)
[2019-12-13] MEDS ORDERED: DULoxetine HCL 30 MG CAPSULE.DR PO ONE (09:13)
[2019-12-13] MEDS ORDERED: PT OWN MED DRAWER 7, Y5N ONE (09:16)
[2019-12-13] MEDS ORDERED: cefTRIAXone SODIUM 1 GM VIAL ONE (09:17)
[2019-12-13] MEDS ORDERED: DEXTROSE 5%-WATER - 50 ML IVPB ONE (09:17)
[2019-12-13] MEDS: amLODIPine BESYLATE 10 MG TABLET (FP) PO SCH (09:42)
[2019-12-13] MEDS: FOLIC ACID 1 MG TABLET (FP) PO SCH (09:42)
[2019-12-13] MEDS: MULTIVITAMINS (DAILY MVI) TABLET (FP) PO SCH (09:42)
[2019-12-13] MEDS: HEPARIN NA (PORCINE) 5,000 UNITS/ML 1ML VIAL SQ SCH ×2 (09:42→22:30)
[2019-12-13] MEDS: VALSARTAN 160 MG TABLET (UD) PO SCH (09:42)
[2019-12-13] MEDS: THIAMINE HCL 200 MG/2 ML VIAL IVPB SCH (09:42)
[2019-12-13] MEDS: THIAMINE HCL 100 MG TABLET (FP) PO SCH (09:42)
[2019-12-13] MEDS: CEFTRIAXONE 1 GM in DEXTROSE 5%-WATER - 50 ML IVPB SCH (09:43)
[2019-12-13] MEDS: DULoxetine HCL 60 MG CAPSULE.DR PO SCH (09:43)
--- NOTE | 2019-12-13 11:00 | PN ---
Progress Note, Physician Chief Complaint: Syncope R Maxillary Sinus Fracture Nasal Bridge Fracture History of Present Illness: Previous notes and event reviewed awake and alert NAD complain of pain to R shoulder/arm denies visual disturbances denies complaints of chest pain or SOB no facial tendernes on palpation - Current Medication List Current Medications: Active Medications Acetaminophen (Tylenol -) 650 mg PO Q6H PRN PRN Reason: PAIN LEVEL 1-5 Last Admin: 12/13/19 09:45 Dose: 650 mg Amlodipine Besylate (Norvasc -) 10 mg PO DAILY [facility] Last Admin: 12/13/19 09:42 Dose: 10 mg Duloxetine HCl (Cymbalta -) 60 mg PO DAILY [facility] Last Admin: 12/13/19 09:43 Dose: 60 mg Folic Acid (Folic Acid -) 1 mg PO DAILY [facility] Last Admin: 12/13/19 09:42 Dose: 1 mg Heparin Sodium (Porcine) (Heparin -) 5,000 unit SQ BID [facility] Last Admin: 12/13/19 09:42 Dose: 5,000 unit Sodium Chloride (Normal Saline -) 1,000 mls @ 75 mls/hr IV ASDIR [facility] Last Admin: 12/13/19 05:27 Dose: Not Given Ceftriaxone Sodium 1 gm/ (Dextrose) 50 mls @ 100 mls/hr IVPB DAILY [facility]; Protocol Last Admin: 12/13/19 09:43 Dose: 100 mls/hr Levothyroxine Sodium (Synthroid Injection -) 50 mcg IVPUSH DAILY@0700 [facility] Last Admin: 12/13/19 06:29 Dose: 50 mcg Lorazepam (Ativan) 0.5 mg PO BID PRN PRN Reason: ANXIETY Meclizine HCl (Antivert -) 25 mg PO DAILY [facility] Last Admin: 12/12/19 13:22 Dose: 25 mg Multivitamins/Minerals/Vitamin C (Tab-A-Vit -) 1 tab PO DAILY [facility] Last Admin: 12/13/19 09:42 Dose: 1 tab Ondansetron HCl (Zofran Injection) 4 mg IVPUSH Q8H PRN PRN Reason: NAUSEA Stop: 12/15/19 23:59 Oxycodone HCl (Roxicodone -) 5 mg PO Q6H PRN PRN Reason: PAIN LEVEL 6-10 Last Admin: 12/12/19 14:01 Dose: 5 mg Thiamine HCl (Vitamin B1 -) 100 mg PO DAILY [facility] Last Admin: 12/13/19 09:42 Dose: 100 mg Thiamine HCl (Vitamin B1 Injection -) 200 mg IVPB DAILY [facility] Stop: 12/15/19 20:00 Last Admin: 12/13/19 09:42 Dose: 200 mg Valsartan (Diovan -) 160 mg PO DAILY [facility] Last Admin: 12/13/19 09:42 Dose: 160 mg - Objective Vital Signs: Vital Signs Temperature 97.1 F L 12/13/19 05:25 Pulse Rate 97 H 12/13/19 05:25 Respiratory Rate 20 12/13/19 05:25 Blood Pressure 160/90 12/13/19 05:25 O2 Sat by Pulse Oximetry (%) 98 12/12/19 20:38 Constitutional: Yes: No Distress, Calm Eyes: Yes: Conjunctiva Clear HENT: Yes: Other (erythema b/l undereye, nasal bridge swelling) Cardiovascular: Yes: Regular Rate and Rhythm Respiratory: Yes: Regular, CTA Bilaterally Gastrointestinal: Yes: Normal Bowel Sounds, Soft Musculoskeletal: Yes: Muscle Weakness Extremities: Yes: WNL Edema: No Integumentary: Yes: Bruising (under b/l eyes, nasal bridge) Neurological: Yes: Alert, Oriented Psychiatric: Yes: Alert, Oriented Labs: CBC, BMP 12/12/19 06:20 12/12/19 06:20 INR, PTT INR 0.95 (0.83-1.09) 12/10/19 23:30 Problem List - Problems (1) Alcohol abuse Assessment/Plan: -Consult Dr Guevara -Thiamine, Folic Acid, MVI -fall precautions -Ativan prn for agitation/anxiety Code(s): F10.10 - ALCOHOL ABUSE, UNCOMPLICATED (2) Hypothyroid Assessment/Plan: -TSH 235.00 -repeat TSH and T4 ordered -Endocrinology on board Code(s): E03.9 - HYPOTHYROIDISM, UNSPECIFIED Qualifiers: Hypothyroidism type: unspecified Qualified Code(s): E03.9 - Hypothyroidism , unspecified (3) Nasal fracture Assessment/Plan: -ENT on board and recommend consiering closed reduction of the nasal bone fracture can be done as outpatient vs outpatient or open reduction with possible septoplasty -pain control -Facial CT scan shows fracture involving the medial aspect of the anterior wall of the right maxillary sinus, medial aspect of the floor of the orbit with extraconal air pocket, fracture involving the medial wall o the right maxillary sinus anteriorly with bony fragments displaced medially, fracture of the right uncinate process of the maxilla, punctate displaced fracture at the tip of the anterior nasal spine, fracture of the nasal septum -Ceftriaxone -leukocytosis -ID consult -Tetanus injection Code(s): S02.2XXA - FRACTURE OF NASAL BONES, INIT ENCNTR FOR CLOSED FRACTURE (4) Right maxillary fracture Assessment/Plan: -ENT consult -pain control -Facial CT scan shows fracture involving the medial aspect of the anterior wall of the right maxillary sinus, medial aspect of the floor of the orbit with extraconal air pocket, fracture involving the medial wall o the right maxillary sinus anteriorly with bony fragments displaced medially, fracture of the right uncinate process of the maxilla, punctate displaced fracture at the tip of the anterior nasal spine, fracture of the nasal septum -Ceftriaxone -Leukocytosis -ID consult -Tetanus injection -ENT on board and recommend consiering closed reduction of the nasal bone fracture can be done as outpatient vs outpatient or open reduction with possible septoplasty Code(s): S02.40CA - MAXILLARY FRACTURE, RIGHT SIDE, INIT (5) Syncope Assessment/Plan: -Cardiology and Neurology on board -Tele monitoring -Carotid doppler shows minimal atherosclerotic disease with no evidence of hemodynamically significant stenoses -fall precaution -Head CT scan shows no CT evidence of of acute intracranial pathology -C-Spine CT scan shows no evidence of acute fracture, compression deformities, subluxation, prevertebral soft tissue swelling, multilevel loss of disc space height with degenerative anterior spondylosis -neuro checks 4h Code(s): R55 - SYNCOPE AND COLLAPSE (6) HTN (hypertension) Assessment/Plan: -Amlodipine, Diovan -low Na diet Code(s): I10 - ESSENTIAL (PRIMARY) HYPERTENSION (7) Dizziness Assessment/Plan: -Meclizine Code(s): R42 - DIZZINESS AND GIDDINESS Assessment/Plan see problem list dvt ppx
[2019-12-13] MEDS: MECLIZINE HCL 25 MG TABLET (FP) PO SCH (12:34)
[2019-12-14] MEDS: LEVOTHYROXINE SODIUM 100 MCG VIAL IVPUSH SCH (06:41)
[2019-12-14] MEDS: SODIUM CHLORIDE 1,000 ML IV SCH (06:42)
[2019-12-14] MEDS: oxyCODONE HCL 5 MG TABLET PO PRN (06:45)
[2019-12-14 07:42] LABS: HEMATOCRIT 32.7 % (32.4-45.2); HEMOGLOBIN 11.2 GM/dL (10.7-15.3); MCH 30.4 pg (25.7-33.7); MCHC 34.2 g/dl (32.0-36.0); MEAN CELL VOLUME 88.9 fl (80-96); MEAN PLT VOLUME 6.7 fl (7.5-11.1); PLATELET COUNT 378 K/MM3 (134-434); RBC 3.68 M/mm3 (3.60-5.2); RDW 15.1 % (11.6-15.6); WHITE BLOOD COUNT 6.3 K/mm3 (4.0-10.0)
[2019-12-14 08:20] LABS: BILIRUBIN,TOTAL 0.3 mg/dL (0.2-1); BLOOD UREA NITROGEN 10.7 mg/dL (7-18); CREATININE 0.8 mg/dL (0.55-1.3); TOT PROT 5.7 g/dl (6.4-8.2)
[2019-12-14] MEDS ORDERED: DULoxetine HCL 30 MG CAPSULE.DR PO ONE (09:14)
[2019-12-14] MEDS ORDERED: cefTRIAXone SODIUM 1 GM VIAL ONE (09:16)
[2019-12-14] MEDS ORDERED: DEXTROSE 5%-WATER - 50 ML IVPB ONE (09:16)
[2019-12-14 09:18] VITALS: BP 143/78; PULSE 76; TEMP 98.2
[2019-12-14] MEDS: MECLIZINE HCL 25 MG TABLET (FP) PO SCH (09:18)
[2019-12-14] MEDS: MULTIVITAMINS (DAILY MVI) TABLET (FP) PO SCH (09:18)
[2019-12-14] MEDS: FOLIC ACID 1 MG TABLET (FP) PO SCH (09:18)
[2019-12-14] MEDS: amLODIPine BESYLATE 10 MG TABLET (FP) PO SCH (09:18)
[2019-12-14] MEDS: DULoxetine HCL 60 MG CAPSULE.DR PO SCH (09:18)
[2019-12-14] MEDS: VALSARTAN 160 MG TABLET (UD) PO SCH (09:18)
[2019-12-14] MEDS: CEFTRIAXONE 1 GM in DEXTROSE 5%-WATER - 50 ML IVPB SCH (09:19)
[2019-12-14] MEDS: HEPARIN NA (PORCINE) 5,000 UNITS/ML 1ML VIAL SQ SCH (09:19)
[2019-12-14] MEDS: THIAMINE HCL 100 MG TABLET (FP) PO SCH (09:20)
[2019-12-14] MEDS: THIAMINE HCL 200 MG/2 ML VIAL IVPB SCH (09:20)
--- NOTE | 2019-12-14 10:08 | DS ---
Physical Examination Vital Signs: Vital Signs Temperature 98.2 F 12/14/19 09:17 Pulse Rate 76 12/14/19 09:17 Respiratory Rate 19 12/14/19 09:17 Blood Pressure 143/78 12/14/19 09:17 O2 Sat by Pulse Oximetry (%) 98 12/13/19 08:50 Findings/Remarks: REFUSED SNF PLACEMENT AWAITING RIGHT UPPER EXTREMITY XRAY Constitutional: Yes: Mild Distress Cardiovascular: Yes: Regular Rate and Rhythm Respiratory: Yes: WNL Gastrointestinal: Yes: WNL Musculoskeletal: Yes: Other Extremities: Yes: Other Integumentary: Yes: WNL Wound/Incision: Yes: Clean/Dry Neurological: Yes: Pre-Existing Deficit ...Motor Strength: RUE Psychiatric: Yes: Other Labs: CBC, BMP 12/14/19 06:27 12/14/19 06:27 Discharge Summary Problems reviewed: Yes Reason For Visit: FALL/ALCOHOL ABUSE Current Active Problems Alcohol abuse (Acute) Allergy to multiple antibiotics (Acute) Hypothyroid (Acute) Myxedema (Acute) Nasal fracture (Acute) Right maxillary fracture (Acute) Syncope (Acute) Unwitnessed fall (Acute) Procedures: Principal: XRAYS/CT SCANS Hospital Course: ADMITTED WORKED UP FOR FALL, TREATED WITH IV ABX FOR UTI, PAIN CONTROL. IV SYNTHROID FOR HYPOTHYROID REFUSED SNF PLACEMENT, SEND [facility] TESTER AND PT OUTPATIENT Plan of Treatment: DC HOME WITH RECORD CHANGER TESTER, PT OUTPATIENT Goals: STOP ETOH, REFUSED OUTPATIENT TREATMENT BC SHE REPORTS NOT HAVING A ETOH PROBLEM Condition: Improved - Instructions Diet, Activity, Other Instructions: SEE DR WINTERS IN 2 WEEKS PT OUTPATIENT [facility] SOFT DIET LOW SODIUM REPEAT THYROID FUNCTION WITH DR WINTERS Referrals: Mathieu Troncoso MD [Primary Care Provider] - Disposition: [facility]/HOME HEALTH CARE - Home Medications Comprehensive Discharge Medication List: Ambulatory Orders Amlodipine Bes/Olmesartan Med [Babita 10-40 mg Tablet] 1 each PO DAILY 08/14/16 Duloxetine HCl [Cymbalta] 60 mg PO DAILY 08/14/16 Meclizine HCl [Antivert -] 25 mg PO DAILY #7 tablet 08/31/19 Acetaminophen [Tylenol .Regular Strength -] 650 mg PO Q6H PRN tablet 12/14/19 Folic Acid - 1 mg PO DAILY #30 tablet 12/14/19 Thiamine HCl [Vitamin B1 -] 100 mg PO DAILY #30 tablet 12/14/19 Prescription Drug Monitoring Program (I-STOP) results: I-STOP not reviewed
== END 2019-12-14 13:02 | disposition home health service (06) | DRG 155 ==
LOC: JER 22:10 → JERBED 12-11 01:22 → OBSVTOIN 12-11 01:56 → J4S 12-11 15:16
PROVIDERS: ADMIT Internal Medicine; ATTEND Family Medicine
DX: S02.2XXA Fracture of nasal bones, initial encounter for closed fracture (principal); S02.40CA Maxillary fracture, right side, initial encounter for closed fracture; R55 Syncope and collapse; I10 Essential (primary) hypertension; S00.83XA Contusion of other part of head, initial encounter; E03.9 Hypothyroidism, unspecified; F32.9 Major depressive disorder, single episode, unspecified; F10.10 Alcohol abuse, uncomplicated; R11.2 Nausea with vomiting, unspecified; M54.5 Low back pain; G58.8 Other specified mononeuropathies; H40.9 Unspecified glaucoma; R29.6 Repeated falls; M19.90 Unspecified osteoarthritis, unspecified site; W18.39XA Other fall on same level, initial encounter; Z88.1 Allergy status to other antibiotic agents; Y92.89 Other specified places as the place of occurrence of the external cause; Z88.0 Allergy status to penicillin
CPT/HCPCS: 36415; 70450-TC; 70486-TC; 71045-TC-FY; 72125-TC; 73030-TC-RT-FY; 80048; 80053; 82550; 83690; 83735; 84100; 84436; 84443; 84484; 85025; 85027; 85610; 85730; 90715; 93005; 93010; 93880-TC; 97116-GP; 97161-GP; 99285-25; G0378; J1644; J7030; Q0162

== ENCOUNTER 2023-05-29 16:43 | Observation (INO) | payer OTHER ==
[2023-05-29] MEDS ORDERED: SODIUM CHLORIDE 0.9% 500 ML INFUS.BAG IV ONE (17:44)
[2023-05-29 18:44] LABS: BASO % 0.2 % (0-2.0); EOS % 0.1 % (0-4.5); HEMATOCRIT 37.5 % (32.4-45.2); HEMOGLOBIN 11.8 GM/dL (10.7-15.3); MCH 24.4 pg (25.7-33.7); MCHC 31.4 g/dl (32.0-36.0); MEAN CELL VOLUME 77.6 fl (80-96); MONO % 3.7 % (3.8-10.2); PLATELET COUNT 649 10^3/uL (134-434); RBC 4.84 M/mm3 (3.60-5.2); RDW 18.1 % (11.6-15.6); WHITE BLOOD COUNT 16.6 K/mm3 (4.0-10.0)
[2023-05-29 19:03] LABS: INR 1.02 (0.83-1.09); POTASSIUM 4.6 mmol/L (3.5-5.1); PROTHROMBIN TIME (PATIENT) 11.8 SEC (9.7-13.0)
[2023-05-29 19:06] LABS: ACTIVATED PTT 31.5 SECONDS (25.2-36.5)
[2023-05-29 19:07] LABS: ALBUMIN 4.1 g/dl (3.4-5.0); BLOOD UREA NITROGEN 19.2 mg/dL (7-18); CALCIUM 9.9 mg/dL (8.5-10.1); MAGNESIUM 2.4 mg/dL (1.8-2.4)
[2023-05-29 19:10] LABS: CREATININE 1.5 mg/dL (0.55-1.3); PHOSPHOROUS 3.6 mg/dL (2.5-4.9)
[2023-05-29 19:12] LABS: BILIRUBIN,TOTAL 0.5 mg/dL (0.2-1); TOT PROT 7.4 g/dl (6.4-8.2)
[2023-05-29 19:45] LABS: EPI CELLS >36 /uL (0-25.1); HYALINE CASTS 7 /uL (0-3.1); PH,URINE 5.5 (5.0-8.0); URINE APPEARANCE CLOUDY; URINE BACTERIA 69 /uL (0-1359); URINE BILIRUBIN NEGATIVE (NEGATIVE); URINE COLOR DK YELLOW; URINE GLUCOSE (UA) NEGATIVE (NEGATIVE); URINE KETONE TRACE (NEGATIVE); URINE LEUK ESTERASE TRACE (NEGATIVE); URINE NITRITE NEGATIVE (NEGATIVE); URINE PROTEIN 1+ (NEGATIVE); URINE WBC 78 /uL (0-25.8)
[2023-05-29 20:13] LABS: URINE RBC 21.3 /uL (0-23.9)
[2023-05-30 06:22] LABS: BASO % 0.8 % (0-2.0); EOS % 0.7 % (0-4.5); HEMATOCRIT 31.7 % (32.4-45.2); HEMOGLOBIN 9.9 GM/dL (10.7-15.3); LYMPH % 29.2 % (8-40); MCH 24.6 pg (25.7-33.7); MCHC 31.3 g/dl (32.0-36.0); MEAN CELL VOLUME 78.6 fl (80-96); MEAN PLT VOLUME 7.2 fl (7.5-11.1); MONO % 7.5 % (3.8-10.2); NEUT % 61.8 % (42.8-82.8); PLATELET COUNT 544 10^3/uL (134-434); RBC 4.04 M/mm3 (3.60-5.2); RDW 18.2 % (11.6-15.6); WHITE BLOOD COUNT 11.2 K/mm3 (4.0-10.0)
[2023-05-30 06:37] LABS: POTASSIUM 4.3 mmol/L (3.5-5.1)
[2023-05-30 06:40] LABS: CALCIUM 9.3 mg/dL (8.5-10.1)
[2023-05-30 06:41] LABS: ALBUMIN 3.4 g/dl (3.4-5.0); BLOOD UREA NITROGEN 17.1 mg/dL (7-18)
[2023-05-30 06:44] LABS: CREATININE 1.3 mg/dL (0.55-1.3)
[2023-05-30 06:46] LABS: BILIRUBIN,TOTAL 0.4 mg/dL (0.2-1); TOT PROT 6.1 g/dl (6.4-8.2)
[2023-05-30] MEDS: LEVOTHYROXINE NA 50 MCG TABLET (FP) PO SCH (08:00)
[2023-05-30] MEDS ORDERED: PANTOPRAZOLE 40 MG TABLET PO ONE (09:03)
[2023-05-30] MEDS ORDERED: amLODIPine BESYLATE 10 MG TABLET (FP) ONE (09:04)
[2023-05-30] MEDS ORDERED: LOSARTAN POTASSIUM 50 MG TABLET ONE (09:04)
[2023-05-30] MEDS ORDERED: DULoxetine HCL 30 MG CAPSULE.DR PO ONE (09:05)
[2023-05-30] MEDS ORDERED: LEVOTHYROXINE NA 50 MCG TABLET (FP) ONE (09:06)
[2023-05-30] MEDS: DULoxetine HCL 30 MG CAPSULE.DR PO SCH (09:30)
[2023-05-30] MEDS: LOSARTAN POTASSIUM 50 MG TABLET PO SCH (09:30)
[2023-05-30] MEDS: PANTOPRAZOLE 40 MG TABLET PO SCH (09:30)
[2023-05-30] MEDS: amLODIPine BESYLATE 10 MG TABLET (FP) PO SCH (09:30)
[2023-05-30 11:02] LABS: URINE BARBITURATES NEGATIVE (NEGATIVE)
[2023-05-30 11:03] LABS: METHADONE, UR NEGATIVE (NEGATIVE); OPIATES, URI NEGATIVE (NEGATIVE); PHENCYCLIDINE,URINE NEGATIVE (NEGATIVE); URINE BENZODIAZEPINES NEGATIVE (NEGATIVE)
[2023-05-30 11:15] LABS: COCAINE, UR NEGATIVE (NEGATIVE); URINE AMPHETAMINES NEGATIVE (NEGATIVE)
[2023-05-31] MEDS: LEVOTHYROXINE NA 50 MCG TABLET (FP) PO SCH (06:34)
[2023-05-31 08:22] LABS: POTASSIUM 4.7 mmol/L (3.5-5.1)
[2023-05-31 08:32] LABS: HEMATOCRIT 33.8 % (32.4-45.2); HEMOGLOBIN 10.6 GM/dL (10.7-15.3); MCH 24.8 pg (25.7-33.7); MCHC 31.5 g/dl (32.0-36.0); MEAN CELL VOLUME 78.8 fl (80-96); MEAN PLT VOLUME 7.5 fl (7.5-11.1); PLATELET COUNT 598 10^3/uL (134-434); RBC 4.29 M/mm3 (3.60-5.2); RDW 17.8 % (11.6-15.6); WHITE BLOOD COUNT 9.1 K/mm3 (4.0-10.0)
[2023-05-31 08:39] LABS: BLOOD UREA NITROGEN 12.8 mg/dL (7-18); CALCIUM 9.4 mg/dL (8.5-10.1)
[2023-05-31 08:42] LABS: CREATININE 1.1 mg/dL (0.55-1.3)
[2023-05-31] MEDS: amLODIPine BESYLATE 10 MG TABLET (FP) PO SCH (10:52)
[2023-05-31] MEDS: LOSARTAN POTASSIUM 50 MG TABLET PO SCH (10:52)
[2023-05-31] MEDS: PANTOPRAZOLE 40 MG TABLET PO SCH (10:52)
[2023-05-31] MEDS: DULoxetine HCL 30 MG CAPSULE.DR PO SCH (10:52)
[2023-06-01] MEDS: LEVOTHYROXINE NA 50 MCG TABLET (FP) PO SCH (06:00)
[2023-06-01 10:35] VITALS: RESP 18
[2023-06-01] MEDS: PANTOPRAZOLE 40 MG TABLET PO SCH (10:36)
[2023-06-01] MEDS: amLODIPine BESYLATE 10 MG TABLET (FP) PO SCH (10:36)
[2023-06-01] MEDS: LOSARTAN POTASSIUM 50 MG TABLET PO SCH (10:36)
[2023-06-01] MEDS: DULoxetine HCL 30 MG CAPSULE.DR PO SCH (10:36)
[2023-06-01 12:50] VITALS: BMI 26.7
[2023-06-01 18:21] VITALS: BP 130/70; PULSE 80; TEMP 98
== END 2023-06-01 18:40 | disposition home or self-care (01) ==
LOC: JER 16:43 → JERBED 05-30 01:13 → INTOOBSV 05-30 01:13 → J7W 05-30 20:19
PROVIDERS: ADMIT Internal Medicine; ATTEND Family Medicine
PROC: 3E0337Z Introduction of Electrolytic and Water Balance Substance into Peripheral Vein, Percutaneous Approach (ICD-10-PCS; principal; 2023-05-30)
DX: R55 Syncope and collapse (principal); R42 Dizziness and giddiness; I10 Essential (primary) hypertension; F10.90 Alcohol use, unspecified, uncomplicated; E03.9 Hypothyroidism, unspecified; F32.9 Major depressive disorder, single episode, unspecified; F12.20 Cannabis dependence, uncomplicated; M19.90 Unspecified osteoarthritis, unspecified site; G89.29 Other chronic pain; M54.9 Dorsalgia, unspecified; F17.210 Nicotine dependence, cigarettes, uncomplicated
CPT/HCPCS: 36415; 71045-TC-FY; 73060-TC-RT-FY; 80048; 80053; 80307; 81003; 83735; 84100; 84439; 84443; 84484; 85025; 85027; 85379; 85610; 85730; 87086; 93005; 93010; 99285-25; G0378